=== PATIENT | male | born 1930 ===

== ENCOUNTER 2019-08-15 17:01 | Inpatient (IN) | payer MEDICARE, OTHER ==
[~2019-08-15] VITALS: Ht 172.7 cm; Wt 93.0 kg
[2019-08-15 17:06] VITALS: BP 110/43
[2019-08-15 18:09] LABS: BASO # 0.1 10*3/uL (0.0-0.1); BASO % 0.6 % (0.0-1.0); EOS # 0.1 10*3/uL (0.0-0.4); EOS % 0.8 % (1.0-4.0); HEMATOCRIT 35.1 % (42.0-52.0); HEMOGLOBIN 11.8 g/dl (14.0-18.0); LYMPH # 1.7 10*3/uL (1.3-4.4); LYMPH % 20.6 % (27.0-41.0); MEAN CELL VOLUME 94.4 fl (80.0-94.0); MEAN CORPUSCULAR HGB 31.7 pg (27.0-31.0); MEAN CORPUSCULAR HGB CONC 33.6 g/dl (33.0-37.0); MEAN PLATELET VOLUME 9.2 fl (9.6-12.3); MONO % 12.3 % (3.0-9.0); NEUT # 5.4 10*3/uL (2.3-7.9); NEUT % 65.3 % (47.0-73.0); PLATELET COUNT AUTOMATED 186 10*3/uL (130-400); RED BLOOD COUNT 3.72 10*6/uL (4.50-5.90); RED CELL DISTRI WIDTH 13.8 % (0-14.5); WHITE BLOOD COUNT 8.3 10*3/uL (4.8-10.8)
[2019-08-15 18:21] LABS: INTERNATIONAL NORM RATIO 2.3 (2.0-3.5)
[2019-08-15 18:25] LABS: ALBUMIN 3.1 gm/dl (3.1-4.5); CREATININE 2.42 mg/dL (0.70-1.30); POTASSIUM 3.3 mmol/L (3.5-5.1); TOTAL PROTEIN 8.6 gm/dL (6.4-8.2)
[2019-08-15 18:28] LABS: TROPONIN I 0.047 ng/ml (<0.045)
[2019-08-15 19:10] VITALS: BP 110/64
[2019-08-15 21:30] VITALS: BP 118/62
[2019-08-15] MEDS ORDERED: ZYLOPRIM300 MG PO (22:41)
[2019-08-15] MEDS ORDERED: BUMETANIDE1 MG PO (22:42)
[2019-08-15] MEDS ORDERED: LIPITOR40 MG PO (22:42)
[2019-08-15] MEDS ORDERED: DIGOX125 MCG PO (22:48)
[2019-08-15] MEDS ORDERED: FEROSUL325 MG PO (22:49)
[2019-08-15] MEDS ORDERED: DIGOX250 MCG PO (22:49)
[2019-08-15] MEDS ORDERED: LEVOTHYROXINE75 MCG PO (22:50)
[2019-08-15] MEDS ORDERED: AMARYL4 MG PO (22:50)
[2019-08-15] MEDS ORDERED: Zaroxolyn,Diul2.5 MG PO (22:51)
[2019-08-15] MEDS ORDERED: LOPRESSOR50 M1 PO (22:51)
[2019-08-15] MEDS ORDERED: K-TAB10 MEQ PO (22:52)
[2019-08-15] MEDS ORDERED: NU-MAG71.5 MG PO (22:52)
[2019-08-15] MEDS ORDERED: FLOMAX0.4 MG PO (22:53)
[2019-08-15] MEDS ORDERED: VITAMIN D250 MCG PO (22:56)
[2019-08-15] MEDS ORDERED: WARFARIN SODIUM6 MG PO ×2 (22:58)
[2019-08-15] MEDS ORDERED: LANTUS SOL100 UNIT/1 SQ (23:52)
[2019-08-15] MEDS ORDERED: NEURONTIN100 MG PO (23:52)
[2019-08-15] MEDS ORDERED: NITROSTAT0.4 MG SL (23:52)
[2019-08-15] MEDS ORDERED: LEVOFLOXACIN500 MG PO (23:53)
[2019-08-15] MEDS ORDERED: Ipratropium Brom3 ML INH (23:54)
[2019-08-15] MEDS ORDERED: PROAIR HFA8.5 GM INH (23:57)
[2019-08-15] MEDS ORDERED: [UNRECOGNIZED DRUG - OTHER] T (23:58)
[2019-08-16 06:21] LABS: BASO # 0.1 10*3/uL (0.0-0.1); BASO % 0.5 % (0.0-1.0); EOS # 0.1 10*3/uL (0.0-0.4); EOS % 0.7 % (1.0-4.0); HEMATOCRIT 35.7 % (42.0-52.0); HEMOGLOBIN 12.1 g/dl (14.0-18.0); LYMPH # 1.8 10*3/uL (1.3-4.4); LYMPH % 17.3 % (27.0-41.0); MEAN CELL VOLUME 93.5 fl (80.0-94.0); MEAN CORPUSCULAR HGB 31.7 pg (27.0-31.0); MEAN CORPUSCULAR HGB CONC 33.9 g/dl (33.0-37.0); MEAN PLATELET VOLUME 9.3 fl (9.6-12.3); MONO # 1.1 10*3/uL (0.1-1.0); MONO % 10.6 % (3.0-9.0); NEUT # 7.1 10*3/uL (2.3-7.9); NEUT % 70.7 % (47.0-73.0); PLATELET COUNT AUTOMATED 185 10*3/uL (130-400); RED BLOOD COUNT 3.82 10*6/uL (4.50-5.90); RED CELL DISTRI WIDTH 13.8 % (0-14.5); WHITE BLOOD COUNT 10.1 10*3/uL (4.8-10.8)
[2019-08-16 06:53] LABS: CREATININE 2.11 mg/dL (0.70-1.30); PHOSPHOROUS 2.7 mg/dL (2.5-4.9); POTASSIUM 3.3 mmol/L (3.5-5.1); TOTAL PROTEIN 8.6 gm/dL (6.4-8.2)
[2019-08-16 08:00] VITALS: BP 136/62
[2019-08-16 11:50] LABS: BILIRUBIN NEGATIVE (NEGATIVE); BLOOD 3+ (NEGATIVE); CLARITY CLOUDY (CLEAR); COLOR YELLOW (YELLOW); GLUCOSE NEGATIVE (NEGATIVE); KETONE NEGATIVE (NEGATIVE); SPECIFIC GRAVITY 1.005 (1.005-1.030)
[2019-08-16 11:51] LABS: LEUKO ESTERASE 3+ (NEGATIVE); NITRITE NEGATIVE (NEGATIVE); UROBILINOGEN 0.2 E.U./dl (0.2-1.0)
[2019-08-16 12:00] VITALS: BP 135/54
[2019-08-16 12:00] LABS: BACTERIA 2+; WBC TNTC wbc/hpf (0-5)
[2019-08-16 16:00] VITALS: BP 113/66
[2019-08-16 20:20] VITALS: BP 110/52
[2019-08-17] VITALS: BP 145/64
[2019-08-17 06:04] LABS: CREATININE 1.91 mg/dL (0.70-1.30); PHOSPHOROUS 2.8 mg/dL (2.5-4.9); POTASSIUM 3.1 mmol/L (3.5-5.1)
[2019-08-17 06:12] LABS: BASO % 0.4 % (0.0-1.0); EOS % 0.4 % (1.0-4.0); HEMATOCRIT 31.1 % (42.0-52.0); HEMOGLOBIN 10.7 g/dl (14.0-18.0); LYMPH # 1.4 10*3/uL (1.3-4.4); LYMPH % 14.7 % (27.0-41.0); MEAN CELL VOLUME 93.4 fl (80.0-94.0); MEAN CORPUSCULAR HGB 32.1 pg (27.0-31.0); MEAN CORPUSCULAR HGB CONC 34.4 g/dl (33.0-37.0); MEAN PLATELET VOLUME 9.6 fl (9.6-12.3); MONO % 10.6 % (3.0-9.0); NEUT # 6.9 10*3/uL (2.3-7.9); NEUT % 73.5 % (47.0-73.0); PLATELET COUNT AUTOMATED 162 10*3/uL (130-400); RED BLOOD COUNT 3.33 10*6/uL (4.50-5.90); RED CELL DISTRI WIDTH 13.9 % (0-14.5); WHITE BLOOD COUNT 9.4 10*3/uL (4.8-10.8)
[2019-08-17 08:00] VITALS: BP 123/52
[2019-08-17 12:00] VITALS: BP 130/60
[2019-08-17 14:28] LABS: INTERNATIONAL NORM RATIO 1.9 (2.0-3.5)
[2019-08-17 14:29] LABS: CREATININE 1.88 mg/dL (0.70-1.30); POTASSIUM 3.7 mmol/L (3.5-5.1)
[2019-08-17 16:00] VITALS: BP 120/54
[2019-08-17 20:00] VITALS: BP 120/54
[2019-08-17 22:45] VITALS: BP 90/42
[2019-08-18] VITALS (8 sets, daily range): BP systolic 94–138; BP diastolic 50–66
[2019-08-18 05:35] LABS: POTASSIUM 3.1 mmol/L (3.5-5.1)
[2019-08-18 06:04] LABS: BASO % 0.5 % (0.0-1.0); EOS # 0.2 10*3/uL (0.0-0.4); EOS % 1.9 % (1.0-4.0); HEMATOCRIT 30.3 % (42.0-52.0); HEMOGLOBIN 10.4 g/dl (14.0-18.0); LYMPH # 1.4 10*3/uL (1.3-4.4); LYMPH % 16.7 % (27.0-41.0); MEAN CELL VOLUME 92.9 fl (80.0-94.0); MEAN CORPUSCULAR HGB 31.9 pg (27.0-31.0); MEAN CORPUSCULAR HGB CONC 34.3 g/dl (33.0-37.0); MEAN PLATELET VOLUME 9.7 fl (9.6-12.3); MONO # 0.8 10*3/uL (0.1-1.0); MONO % 10.1 % (3.0-9.0); NEUT # 5.7 10*3/uL (2.3-7.9); NEUT % 70.4 % (47.0-73.0); PLATELET COUNT AUTOMATED 156 10*3/uL (130-400); RED BLOOD COUNT 3.26 10*6/uL (4.50-5.90); RED CELL DISTRI WIDTH 14.1 % (0-14.5); WHITE BLOOD COUNT 8.1 10*3/uL (4.8-10.8)
[2019-08-19 06:07] LABS: BASO # 0.1 10*3/uL (0.0-0.1); BASO % 0.7 % (0.0-1.0); HEMATOCRIT 31.3 % (42.0-52.0); HEMOGLOBIN 10.4 g/dl (14.0-18.0); LYMPH # 1.5 10*3/uL (1.3-4.4); LYMPH % 17.5 % (27.0-41.0); MEAN CELL VOLUME 94.3 fl (80.0-94.0); MEAN CORPUSCULAR HGB 31.3 pg (27.0-31.0); MEAN CORPUSCULAR HGB CONC 33.2 g/dl (33.0-37.0); MEAN PLATELET VOLUME 9.8 fl (9.6-12.3); MONO % 11.7 % (3.0-9.0); NEUT # 5.8 10*3/uL (2.3-7.9); NEUT % 69.5 % (47.0-73.0); PLATELET COUNT AUTOMATED 165 10*3/uL (130-400); RED BLOOD COUNT 3.32 10*6/uL (4.50-5.90); RED CELL DISTRI WIDTH 14.2 % (0-14.5); WHITE BLOOD COUNT 8.4 10*3/uL (4.8-10.8)
[2019-08-19 06:17] LABS: CREATININE 1.77 mg/dL (0.70-1.30); POTASSIUM 3.2 mmol/L (3.5-5.1)
[2019-08-19 08:00] VITALS: BP 115/59
[2019-08-19 11:57] VITALS: BP 121/52
[2019-08-19 16:00] VITALS: BP 128/67
[2019-08-19 20:00] VITALS: BP 118/64
[2019-08-20] VITALS: BP 110/54
[2019-08-20 06:12] LABS: CREATININE 1.68 mg/dL (0.70-1.30); POTASSIUM 3.3 mmol/L (3.5-5.1)
[2019-08-20 06:15] LABS: INTERNATIONAL NORM RATIO 1.9 (2.0-3.5)
[2019-08-20 08:00] VITALS: BP 120/72
[2019-08-20 12:00] VITALS: BP 126/72
[2019-08-20 16:00] VITALS: BP 125/54
[2019-08-20 20:00] VITALS: BP 110/56
[2019-08-21] VITALS: BP 115/70
[2019-08-21 06:17] LABS: CREATININE 1.58 mg/dL (0.70-1.30); POTASSIUM 3.1 mmol/L (3.5-5.1)
[2019-08-21 08:00] VITALS: BP 110/60
[2019-08-21 12:00] VITALS: BP 115/56
[2019-08-21] MEDS ORDERED: KLOR-CON M2020 ME1 PO (14:27)
[2019-08-21] MEDS ORDERED: BUMETANIDE1 MG PO (14:27)
[2019-08-21] MEDS ORDERED: REMEDY CALAZIME4 GM T (14:27)
[2019-08-21] MEDS ORDERED: Humalog SQ (14:27)
[2019-08-21] MEDS ORDERED: CIPRO500 MG PO (14:54)
== END 2019-08-21 17:30 | disposition other institution (70) | DRG 871 ==
LOC: ED 17:01 → EDHOLD 20:30 → 5E 20:30
PROVIDERS: Family Medicine; Internal Medicine Nephrology; Physician Assistant; Student in an Organized Health Care Education/Training Program; ADMIT Internal Medicine
DX: A41.9 Sepsis, unspecified organism (principal); N17.0 Acute kidney failure with tubular necrosis; N39.0 Urinary tract infection, site not specified; E87.1 Hypo-osmolality and hyponatremia; E44.0 Moderate protein-calorie malnutrition; I13.0 Hypertensive heart and chronic kidney disease with heart failure and stage 1 through stage 4 chronic kidney disease, or unspecified chronic kidney disease; N13.30 Unspecified hydronephrosis; Z66 Do not resuscitate; Z51.5 Encounter for palliative care; R31.9 Hematuria, unspecified; E87.6 Hypokalemia; E11.65 Type 2 diabetes mellitus with hyperglycemia; R65.20 Severe sepsis without septic shock; E78.5 Hyperlipidemia, unspecified; M10.9 Gout, unspecified; I25.10 Atherosclerotic heart disease of native coronary artery without angina pectoris; G62.9 Polyneuropathy, unspecified; N18.3 Chronic kidney disease, stage 3 (moderate); E11.22 Type 2 diabetes mellitus with diabetic chronic kidney disease; E03.9 Hypothyroidism, unspecified; N40.0 Benign prostatic hyperplasia without lower urinary tract symptoms; J44.9 Chronic obstructive pulmonary disease, unspecified; I50.9 Heart failure, unspecified; M81.0 Age-related osteoporosis without current pathological fracture; I48.91 Unspecified atrial fibrillation; B96.89 Other specified bacterial agents as the cause of diseases classified elsewhere; E11.42 Type 2 diabetes mellitus with diabetic polyneuropathy; R33.9 Retention of urine, unspecified; Z88.0 Allergy status to penicillin; Z90.49 Acquired absence of other specified parts of digestive tract; Z82.49 Family history of ischemic heart disease and other diseases of the circulatory system; Z84.1 Family history of disorders of kidney and ureter; Z79.4 Long term (current) use of insulin; Z79.899 Other long term (current) drug therapy; Z79.01 Long term (current) use of anticoagulants; Z68.31 Body mass index [BMI] 31.0-31.9, adult

== ENCOUNTER 2019-11-24 12:08 | Inpatient (IN) | payer MEDICARE, OTHER ==
[2019-11-24] VITALS (9 sets, daily range): BP systolic 102–133; BP diastolic 64–84
[~2019-11-24] VITALS: Ht 172.7 cm; Wt 93.0 kg
[~2019-11-24 12:08] MED LIST: AMARYL4 MG PO; BUMETANIDE1 MG PO; CIPRO500 MG PO; DIGOX125 MCG PO; DIGOX250 MCG PO; FEROSUL325 MG PO; FLOMAX0.4 MG PO; Humalog SQ; Ipratropium Brom3 ML INH; K-TAB10 MEQ PO; KLOR-CON M2020 ME1 PO; LANTUS SOL100 UNIT/1 SQ; LEVOFLOXACIN500 MG PO; LEVOTHYROXINE75 MCG PO; LIPITOR40 MG PO; LOPRESSOR50 M1 PO; NEURONTIN100 MG PO; NITROSTAT0.4 MG SL; NU-MAG71.5 MG PO; PROAIR HFA8.5 GM INH; REMEDY CALAZIME4 GM T; VITAMIN D250 MCG PO; WARFARIN SODIUM6 MG PO; ZYLOPRIM300 MG PO; Zaroxolyn,Diul2.5 MG PO; [UNRECOGNIZED DRUG - OTHER] T
[2019-11-24 13:40] LABS: BILIRUBIN NEGATIVE (NEGATIVE); BLOOD 3+ (NEGATIVE); CLARITY CLOUDY (CLEAR); COLOR YELLOW (YELLOW); GLUCOSE NEGATIVE (NEGATIVE); KETONE NEGATIVE (NEGATIVE); LEUKO ESTERASE 3+ (NEGATIVE); NITRITE POSITIVE (NEGATIVE); UROBILINOGEN 0.2 E.U./dl (0.2-1.0)
--- NOTE | 2019-11-24 13:41 | NUR ---
PT PROVIDED A CLEAN BRIEF AND REPOSITIONED WITH A WARM BLANKET, A PILLOW AN A LUNCH TRAY PROVIDED AND NO ADDITIONAL COMPLAINTS VOICED,SAFETY PRECAUTIONS INTACT AND A CALL LIGHT WITHIN REACH.
[2019-11-24 13:44] LABS: BACTERIA 4+; RBC TNTC rbc/hpf (0-2); WBC TNTC wbc/hpf (0-5)
[2019-11-24 15:09] LABS: BASO % 0.4 % (0.0-1.0); HEMATOCRIT 29.1 % (42.0-52.0); LYMPH # 1.7 10*3/uL (1.3-4.4); LYMPH % 16.9 % (27.0-41.0); MEAN CELL VOLUME 101.4 fl (80.0-94.0); MEAN CORPUSCULAR HGB 31.7 pg (27.0-31.0); MEAN CORPUSCULAR HGB CONC 31.3 g/dl (33.0-37.0); MEAN PLATELET VOLUME 9.3 fl (9.6-12.3); MONO # 0.8 10*3/uL (0.1-1.0); MONO % 7.5 % (3.0-9.0); NEUT # 7.5 10*3/uL (2.3-7.9); NEUT % 74.8 % (47.0-73.0); PLATELET COUNT AUTOMATED 172 10*3/uL (130-400); RED BLOOD COUNT 2.87 10*6/uL (4.50-5.90); RED CELL DISTRI WIDTH 16.1 % (0-14.5)
--- NOTE | 2019-11-24 15:18 | NUR ---
PT MADE AWARE THAT SON LUZ MARIA HAD CALLED AND THAT HE(PT)WAS TO BE ADMITTED,PT WITH FLUIDS PROVIDED AND SAFETY PRECAUTIONS AND CALL LIGHT REMAIN INTACT,NO ACUTE DISTRESS NOTED.PT WITH PHOTOGRAPHS TAKEN AND BRIEF CHANGED @ THAT TIME.
[2019-11-24 15:21] LABS: ACT PARTIAL THROMBO TIME 49.3 SECONDS (20.0-32.1); INTERNATIONAL NORM RATIO 3.1 (2.0-3.5)
[2019-11-24 15:27] LABS: ALBUMIN 2.9 gm/dl (3.1-4.5); CREATININE 1.64 mg/dL (0.70-1.30); POTASSIUM 3.9 mmol/L (3.5-5.1); TOTAL PROTEIN 7.8 gm/dL (6.4-8.2)
[2019-11-24 15:28] LABS: TROPONIN I 0.017 ng/ml (<0.045)
--- NOTE | 2019-11-24 15:38 | NUR ---
CARDIZEM HAD LITTLE EFFECT DR PEÑA NOTIFIED
--- NOTE | 2019-11-24 16:15 | NUR ---
A 89, admitted to 5E, under the services of ISAURA Zabala DO with a diagnosis of LUMBAR COMPRESSION FX,AFIB WITH RVR. Chief complaint is BACK PAIN. Patient arrived via stretcher from ER. Monitor applied. Initial assessment completed. Vital signs taken and recorded. ISAURA ZAABLA DO notified of admission to the unit. Orders received. See assessment for past medical history, medications and allergies. Patient and/or family oriented to unit 5 [facility]AST visitation policy reviewed. Clothing/patient valuable form completed. MANAV VALENCIA
--- NOTE | 2019-11-24 16:56 | NUR ---
PATIENT RECEIVED MORPHIME FOR BACK PAIN 03/08
--- NOTE | 2019-11-24 17:56 | NUR ---
PATIENT REPORTS MODERATE RELIEF FROM MORPHINE GIVEN X 1 HOUR AGO.
[2019-11-24] MEDS ORDERED: AQUAPHOR WITH N50 GM T (18:26)
[2019-11-24] MEDS ORDERED: CHOLESTYRAMINE P4 GM PO (18:31)
[2019-11-24] MEDS ORDERED: NEURONTIN300 MG PO (18:32)
[2019-11-24] MEDS ORDERED: INSULIN LI100 UNIT/1 SQ (18:35)
[2019-11-24] MEDS ORDERED: MAPAP EXTRA ST500 MG PO (18:37)
[2019-11-24] MEDS ORDERED: COUMADIN1 M1 PO (18:42)
[2019-11-24] MEDS ORDERED: ZINC50 M3 PO (18:44)
[2019-11-24] MEDS ORDERED: ICY HOT BALM99.2 GM T (18:47)
[2019-11-24] MEDS ORDERED: CALMOSEPTINE OI71 GM T (18:48)
[2019-11-24] MEDS ORDERED: TRAMADOL HCL50 MG PO (18:49)
--- NOTE | 2019-11-24 18:55 | NUR ---
NOTFIED OF PATIENTS MED REC COMPLETE SPOKE TO DR. AVALOS. HE ALSO STATED HE HAD NOTIFIED DR. MORFIN OF CONSULT EARLIER.
--- NOTE | 2019-11-24 19:30 | NUR ---
RETURNED FROM CT SCAN. HR STILL IN 140-150'S CARDIZEM DRIP INCREASED TO 10MG/HR.
--- NOTE | 2019-11-24 19:34 | NUR ---
IV DIGOXIN GIVEN PER ORDER FOR HRF 140'S IV SLOW PUSH OVER 4 MINUTES. HEART RATE WENT TO 129 BUT WENT BACK TO 140'S
--- NOTE | 2019-11-24 19:53 | NUR ---
C/O PAIN IN BACK RATED "7-8" NORCO GIVEN PER ORDER FOR THIS. SEE MAR.
--- NOTE | 2019-11-24 20:23 | NUR ---
HR DECREASED INTO THE 130'S
--- NOTE | 2019-11-24 20:50 | NUR ---
CB HELPING A LITTLE FOR BACK PAIN PER PT.
--- NOTE | 2019-11-24 22:28 | NUR ---
LANTUS NOT GIVEN PATIENT REFUSED GLUCOSE WAS 131.
--- NOTE | 2019-11-24 22:34 | NUR ---
CALLED DR. JONES AND NOTIFIED HIM OF PATIENT HR MEDS AND WHEEZING ORDERS RECEIVED.
[2019-11-25] VITALS (17 sets, daily range): BP systolic 102–140; BP diastolic 50–86
--- NOTE | 2019-11-25 01:06 | NUR ---
HR STILL 130'S AT TIMES AND MOSTLY 120'S INCREASED CARDIZEM TO 15MG/HR.
--- NOTE | 2019-11-25 01:15 | NUR ---
HR SPIKED INTO THE 150'S AND BACK DOWN 110'S-120'S CARDIZEM DRIP REMAINS AT 15MG/HR
--- NOTE | 2019-11-25 01:32 | NUR ---
24 HR chart check completed.
--- NOTE | 2019-11-25 02:17 | NUR ---
RESTING EASY. WHEEZING DECREASED. HR STILL GOES FROM 100'S -130'S.
[2019-11-25 06:03] LABS: BASO # 0.1 10*3/uL (0.0-0.1); BASO % 0.6 % (0.0-1.0); EOS # 0.1 10*3/uL (0.0-0.4); HEMATOCRIT 27.6 % (42.0-52.0); LYMPH # 1.8 10*3/uL (1.3-4.4); LYMPH % 19.5 % (27.0-41.0); MEAN CELL VOLUME 99.6 fl (80.0-94.0); MEAN CORPUSCULAR HGB 32.1 pg (27.0-31.0); MEAN CORPUSCULAR HGB CONC 32.2 g/dl (33.0-37.0); MEAN PLATELET VOLUME 9.6 fl (9.6-12.3); MONO # 0.8 10*3/uL (0.1-1.0); MONO % 8.6 % (3.0-9.0); NEUT # 6.3 10*3/uL (2.3-7.9); NEUT % 69.9 % (47.0-73.0); PLATELET COUNT AUTOMATED 186 10*3/uL (130-400); RED BLOOD COUNT 2.77 10*6/uL (4.50-5.90); RED CELL DISTRI WIDTH 15.8 % (0-14.5)
--- NOTE | 2019-11-25 06:04 | NUR ---
BEDSIDE BLOOD SUGAR TAKEN 49 RESULT. REPEAT TEST.
--- NOTE | 2019-11-25 06:06 | NUR ---
REPEAT BEDSIDE GLUCOSE STILL 49. TO NOTIFY
--- NOTE | 2019-11-25 06:15 | NUR ---
PT. DRANK 120CC ORANGE JUICE AND D10 INFUSING PER ORDER.
[2019-11-25 06:30] LABS: CREATININE 1.41 mg/dL (0.70-1.30); POTASSIUM 3.7 mmol/L (3.5-5.1); TOTAL PROTEIN 7.5 gm/dL (6.4-8.2)
--- NOTE | 2019-11-25 06:30 | NUR ---
CALLED DR. JONES AND NOTIFIED HIM OF BLOOD SUGAR 49 EVEN AFTER REPEAT, JUICE GIVEN AND D10 INFUSING PER ORDER. PATIENT ALERT AND COHERENT FOLLOWING DIRECTIONS. ALSO NOTIFIED HR AND CARDIZEM INFUSING AT 15MG/HR AND HR STILL 102 LOWEST AND HIGHEST 144 BUT MOSTLY RUNNING 110'S TO 120'S. PATIENT SLEEPING AND NO C/O CHEST PAIN VOICED. ORDERS RECEIVED TO GREGORY YANEZ.
[2019-11-25 06:32] LABS: INTERNATIONAL NORM RATIO 2.9 (2.0-3.5)
[2019-11-25 06:36] LABS: THYROID STIM HORMONE (HS) 3.09 uIU/ml (0.358-4.75)
--- NOTE | 2019-11-25 10:05 | NUR ---
CARDIZEM HAS BEEN TITRATED PER POLICY DR PEARL UPDATED REMAINS IN AF VR 85-102
--- NOTE | 2019-11-25 14:19 | NUR ---
SPOKE WITH DR. MORFIN. HE STATED TO INCREASE HIS DAILY METOPROLOL TO 100 MG BID AND TO GIVE A ONE TIME DOSE OF METOPROLOL 50 MG RIGHT NOW. RECHECK HIS BLOOD PRESSURE AND IF IT DOES NOT IMPROVE TO NOTIFY HIM.
--- NOTE | 2019-11-25 16:18 | NUR ---
CALLED DR. MORFIN IN REGARDS TO PATIENT'S BLOOD PRESSURE OF 120/50 AND HR STAYING IN THE 120-130'S AFTER ONE TIME DOSE METOPROLOL WAS GIVEN AT 1430. AWAITING A CALL BACK.
--- NOTE | 2019-11-25 17:16 | NUR ---
REPAGED DR. MORFIN ABOUT PT'S HR STILL RUNNING IN THE 120-130'S. AWAITING CALL BACK.
--- NOTE | 2019-11-25 19:40 | NUR ---
PAGE SENT TO 'S ANSWERING SERVICE. AWAITING RETURN PHONE CALL.
--- NOTE | 2019-11-25 19:42 | NUR ---
RETURNED PHONE CALL. DISCUSSED EARLIER MEDICATIONS GIVEN AND CURRENT VITALS/HR. INSTRUCTED TO ORDER 500 CC BOLUS X 1 BAG NOW.
--- NOTE | 2019-11-25 20:30 | NUR ---
500 CC FLUID BOLUS COMPLETE AT THIS TIME. BAG #4 OF TANISHA REYES. RUNNING AT 15 ML/HR INTO LAC IV SITE. HR 110S-120S PER CM. WILL ADMINISTER PM MEDICATIONS.
--- NOTE | 2019-11-25 21:35 | NUR ---
CALLED REGARDING PT HAVING INCREASED WHEEZING. RR 22-26. DISCUSSED HR AND MEDICATION CHANGES. NEW ORDERS TO FOLLOW.
--- NOTE | 2019-11-25 22:44 | NUR ---
CRACKLES NOW NOTED IN POSTERIOR BASES. RN DID NOT NOTICE THESE UPON EARLIER ASSESSMENT. MADE AWARE OF THIS. ALSO AWARE OF 500 CC BOLUS GIVEN EARLIER PER 'S ORDERS. AWARE THAT PATIENT IS CURRENTLY ASLEEP AND RR 22-24. POX 96% AND ABOVE ON 2L NC. INSTRUCTED TO MONITOR PT THROUGHOUT NIGHT AND CALL IF BREATHING DOES NOT IMPROVE/GETS WORSE. ALSO AWARE ONE TIME BREATHING TX NOT GIVEN, RESPIRATORY STATES THAT EARLIER ADMINISTRATION MADE HIM MORE SHORT OF BREATH.
[2019-11-26] VITALS (12 sets, daily range): BP systolic 105–147; BP diastolic 59–90
--- NOTE | 2019-11-26 02:48 | NUR ---
NOTIFIED OF PATIENT BREATHING PROGRESSIVELY GETTING WORSE. PT HAS PB CRACKLES BL AND HARSH WHEEZES WITH MOIST NON PRODUCTIVE COUGH. RESPIRATORY AT BEDSIDE TO ADMINISTER BREATHING TX. QUESTIONED WHETHER LASIX SHOULD BE ORDERED, 500 CC BOLUS HAD BEEN GIVEN EARLIER. NEW ORDERS TO FOLLOW.
--- NOTE | 2019-11-26 04:48 | NUR ---
POX REMAINS 98% AND ABOVE ON 2L NC. PT CONTINUES TO HAVE HARSH EXPIRATORY WHEEZING T/O SORENSON AND UPPER AIRWAY. COARSE CRACKLES IMPROVING TO R POSTERIOR BASE, BUT L POSTERIOR BASE REMAINS UNCHANGED. RR 26 AT THIS TIME. BP 147/81. PO NORCO ADMINISTERED FOR PT C/O LOWER BACK PAIN RATED 5/10. PT REFUSING POSITION CHANGE AT THIS TIME. PT DOES ALLOW PILLOW TO BE SLIGHTLY WEDGED UNDER ONE SIDE, BUT STATES IT HURTS TOO MUCH TO MOVE. WILL CONTINUE TO MONITOR. BED ALARM INTACT. CALL LIGHT IN REACH.
[2019-11-26 06:22] LABS: ALBUMIN 2.6 gm/dl (3.1-4.5); CREATININE 1.41 mg/dL (0.70-1.30); POTASSIUM 4.2 mmol/L (3.5-5.1); TOTAL PROTEIN 7.4 gm/dL (6.4-8.2)
[2019-11-26 06:31] LABS: BASO # 0.1 10*3/uL (0.0-0.1); BASO % 0.5 % (0.0-1.0); LYMPH # 1.2 10*3/uL (1.3-4.4); LYMPH % 11.8 % (27.0-41.0); MEAN CELL VOLUME 98.9 fl (80.0-94.0); MEAN CORPUSCULAR HGB 31.8 pg (27.0-31.0); MEAN CORPUSCULAR HGB CONC 32.1 g/dl (33.0-37.0); MEAN PLATELET VOLUME 9.3 fl (9.6-12.3); MONO # 0.8 10*3/uL (0.1-1.0); MONO % 8.5 % (3.0-9.0); NEUT # 7.8 10*3/uL (2.3-7.9); NEUT % 78.9 % (47.0-73.0); PLATELET COUNT AUTOMATED 195 10*3/uL (130-400); RED BLOOD COUNT 2.83 10*6/uL (4.50-5.90); RED CELL DISTRI WIDTH 15.8 % (0-14.5); WHITE BLOOD COUNT 9.9 10*3/uL (4.8-10.8)
--- NOTE | 2019-11-26 06:36 | NUR ---
JERMAN GOEL Miguel [id number] Please refer to the physician's history and physical for past medical history, comorbid conditions, and allergies. Diagnosis: LUMBAR COMPRESSION FRACTURE ATRIAL FIBRILLATION Kofi Score: 12,HIGH RISK WOUND DESCRIPTIONS: Wound Number: 1 Location of the wound: left buttocks Type of wound: stage 2 Thickness: Partial Size: 1.1cm x 1.4cm x 0.1cm Tunneling: none Undermining: none Sinus Tract: none Presence of Exudate: Serosanguineous Amount: Light Color: Red Odor: None Periwound Skin Appearance: Normal Wound edges: approximated Pain (associated with wound): none at time of assessment How does patient state this happened? pt unsure how this happened Wound Number: 2 Location of the wound: right proximal buttocks Type of wound: stage 2 Thickness: Partial Size: 0.3cm x 0.5cm x 0.1cm Tunneling: none Undermining: none Sinus Tract: none Presence of Exudate: Serosanguineous Amount: Light Color: Red Odor: None Periwound Skin Appearance: Normal Wound edges: approximated Pain (associated with wound): none at time of assessment How does patient state this happened? pt unsure how this happened Wound Number: 3 Location of the wound: lower right buttocks Type of wound: stage 2 Thickness: Partial Size: 0.5cm x 0.2cm x 0.1cm Tunneling: none Undermining: none Sinus Tract: none Presence of Exudate: Serosanguineous Amount: Light Color: Red Odor: None Periwound Skin Appearance: Normal Wound edges: approximated Pain (associated with wound): none at time of assessment How does patient state this happened? pt unable to state how this happened Wound Number: 4 Location of the wound: plantar aspect of left foot Type of wound: unstageable Thickness: Full Size: 0.2cm x 0.6cm x <0.1cm Tunneling: none Undermining: none Sinus Tract: none Presence of Exudate: none Amount: None Color: Brown, yellow Odor: None Periwound Skin Appearance: Normal Wound edges: closed Pain (associated with wound): none at time of assessment How does patient state this happened? pt unsure how this happened Wound Number: 5 Location of the wound: distal aspect of right great toe Type of wound: unstageable Thickness: Full Size: 0.3cm x 0.3cm x <0.1cm Tunneling: none Undermining: none Sinus Tract: none Presence of Exudate: none Amount: None Color: Black Odor: None Periwound Skin Appearance: Normal Wound edges: closed Pain (associated with wound): none at time of assessment How does patient state this happened? pt unsure how this happened Surface the patient is resting on: Isoflex SKIN PREVENTION RECOMMENDATION: 1. Pressure redistribution support surface as appropriate 2. Elevate heels 3. Remove boots/TEDS every shift and reapply 4. Head of bed 30 degrees as tolerated 5. Assess nutrition and hydration 6. Manage moisture 7. Avoid the use of containment devices while in bed 8. Use absorptive products on surfaces limit layers of linens on bed 9. Turn and reposition every 1-2 hours in bed and every 1 hour in chair as tolerated 10. Weight shifts every 15 minutes while up in chair 11. Offloading with pillows or device to keep heels elevated off bed 12. Monitor skin at least every shift 13. Inspect under medical devices twice a day WOUND TREATMENT RECOMMENDATIONS: Unstageable guidelines: Apply sureprep to plantar aspect of left foot and left distal end of great toe and allow time to dry then cover with bandaid every 2 days and prn for soiling. D/C skin tear guidelines to buttocks Cleanse proximal right buttocks proximal, right buttocks distal and left buttocks with soap and water and apply calazime every shift and prn for soiling Wheelchair cushion when oob. Heel raiser pro boots to bilateral feet while in bed.
[2019-11-26 06:42] LABS: INTERNATIONAL NORM RATIO 2.9 (2.0-3.5)
--- NOTE | 2019-11-26 07:48 | NUR ---
PHYSICAL THERAPY Nursing screen received and chart reviewed. PT evaluation received. Will follow. Thank you. Amira Theodore,PT,DPt
--- NOTE | 2019-11-26 07:52 | NUR ---
NOTIFIED OF PT HAVING TROUBLE SWALLOWING THIN LIQUIDS THIS MORNING. AWARE OF CRACKLES IN L POST BASE AND HARSH EXPIRATORY WHEEZES.
--- NOTE | 2019-11-26 08:50 | NUR ---
OT NOTE Occupational therapy evaluation received and chart reviewed. Per discussion with carolyne, patient is on a cardizem drop with A-fib, noteable respiratory status changes, and has difficulty wswallowing. Due to patient's medical status and possibility for surgery, will defer OT evaluation until medically appropriate. Thank you. Lillie Ramsey, OTR/L
--- NOTE | 2019-11-26 09:00 | NUR ---
PHYSICAL THERAPY Eval received chart reviewed spoke with pt's nurse. Pt remains on cardizem drip with Afib also noteable changes in respiratory status and difficulty swallowing thin liquids for possible Speech evaluation. Due to medical status will defer therapy today also per nsg looking at possible surgery for LB/compression fx's. Will follow and evaluate as medically appropriate. Denise Bond PT
--- NOTE | 2019-11-26 09:06 | NUR ---
Dr. Criss VARGAS notified of wound care recommendations
--- NOTE | 2019-11-26 12:18 | NUR ---
PT CURRENTLY RESIDES AT [facility]. TALKED WITH PT ABOUT SKILLED STAY PRIOR TO RETURNING BACK TO [facility]. PT STATES HE WANTS TO GO BACK TO [facility] IF HE CAN. IF NOT HE SAID HE HAS BEEN TO [facility] BEFORE AND WOULD GO BACK THERE ONLY IF ABSOLUTLY NECESSARY. WILL CONTINUE TO FOLLOW.
--- NOTE | 2019-11-26 13:52 | NUR ---
ECHO AT BEDSIDE
--- NOTE | 2019-11-26 15:21 | NUR ---
HAVE ATTEMPTED TO CALL THE CONSULT TO DR. OLIVARES OFFICE SEVERAL TIMES, PRESSING OPTION IF HOSPITAL, FRONT OFFICE, AND OFFICE MANGER WITH NO ANSWER. SEVERAL TIMES ON HOLD GREATER THAN 5 MINUTES, LINE WOUND THEN DISCONNECT. WILL CONTINUE TO ATTEMPT TO CALL CONSULT.
--- NOTE | 2019-11-26 16:13 | NUR ---
DR. OLIVARES ANSWERING SERVICE NOTIFIED OF CONSULT.
--- NOTE | 2019-11-26 20:01 | NUR ---
PT AWAKE IN BED. DENIES ANY NEEDS. RESPIRATORY AT BEDSIDE TO APPLY BIPAP PER ORDER. WILL MONITOR.
--- NOTE | 2019-11-26 20:07 | NUR ---
PATIENT PLACED ON BIPAP AT 12/6 WITH 30% OXYGEN.ON INITIAL ASSESSMENT PATIENT PRESENTED WITH WITH LOUD WHEEZE ORIGINATING IN HIS EPIGLOTTIS AREA. BASILAR CRACKLES NOTED FOR INSPIRAATION AND EXPIRATION. PATIENT IS RESTING COMFORTABLY ON BIPAP. CONTINUING TO MONITOR. RN AND DOCTOR AWARE.
--- NOTE | 2019-11-26 22:12 | NUR ---
BIPAP REMOVED AND PT PLACED ON O2 VIA 2L NC. RESPIRATORY NOTIFIED. PT MEDICATED WITH PO NORCO PER PRN ORDER FOR C/O PAIN IN BACK RATED 6/10. PATIENT TOOK PILLS ONE AT A TIME IN UPRIGHT POSITION WITHOUT ISSUE. PT INCONTINENT IN BED. PT CLEANED UP AND NEW BRIEF/CHUCKS/LINENS PROVIDED. PT AGREED TO REPOSITIONING AT THIS TIME. PT TURNED ON L SIDE USING PILLOW. HOB ELEVATED FOR COMFORT. AQUAPHOR OINTMENT APPLIED TO BLE PER ORDER. HEEL PROTECTORS IN PLACE. PT STATES HE FEELS MUCH BETTER AFTER WEARING BIPAP MASK. HARSH UPPER AIRWAY WHEEZES STILL PRESENT AND CRACKLES HEARD IN POSTERIOR BASES, BUT RESPIRATORY EFFORT IS MUCH IMPROVING. CONTINUOUS POX REMAINS IN PLACE. CARDIZEM GTT TITRATED TO 10 ML/HR. SCHEDULED PO METOPROLOL ADMINISTERED PER ORDER. PT'S HR SITTING 80S-90S PER CM. BP 130/72. WILL CONTINUE TO MONITOR. BED LEFT LOCKED IN LOW POSITION, BED ALARM INTACT, CALL LIGHT IN REACH.
--- NOTE | 2019-11-26 22:51 | NUR ---
EARLIER NORCO EFFECTIVE PER PT. WILL MONITOR. CALL LIGHT IN REACH. BED ALARM INTACT.
--- NOTE | 2019-11-26 22:51 | NUR ---
HR BACK UP INTO 110S AFTER CARDIZEM DECREASED TO 10 ML/HR. DRIP INCREASED BACK TO 15 ML/HR. WILL MONITOR.
[2019-11-27] VITALS (12 sets, daily range): BP systolic 104–133; BP diastolic 45–81
--- NOTE | 2019-11-27 04:30 | NUR ---
PT TAKEN OFF BIPAP AT THIS TIME. O2 APPLIED AT 2L NC.
--- NOTE | 2019-11-27 04:34 | NUR ---
Upon discharge recommend patient to follow up for wound care in outpatient setting continue current wound care orders at discharging facility.
--- NOTE | 2019-11-27 04:45 | NUR ---
PT REQUESTED AND RECEIVED PO NORCO PER PRN ORDER FOR C/O PAIN IN LOWER BACK RATED 6/10. WILL MONITOR EFFECTIVENESS. CALL LIGHT IN REACH. BED ALARM INTACT.
--- NOTE | 2019-11-27 05:40 | NUR ---
EARLIER MEDICATION EFFECTIVE PER PT. WILL MONITOR. CALL LIGHT IN REACH.
--- NOTE | 2019-11-27 06:51 | NUR ---
SQ INSULIN GIVEN PER ORDER. PT ASSISTED TO ORDER BREAKFAST. NO NEEDS VOICED AT THIS TIME. WILL MONITOR. CALL LIGHT IN REACH.
[2019-11-27 06:58] LABS: INTERNATIONAL NORM RATIO 2.8 (2.0-3.5)
--- NOTE | 2019-11-27 07:29 | NUR ---
ISSUING OPERATOR FAXED UPDATES TO [facility].
--- NOTE | 2019-11-27 08:36 | NUR ---
CITY CONTROLLER REACHED BACK OUT TO [facility]. CITY CONTROLLER SPOKE WITH MAE WHO STATED THE PATIENTS DO NOT NEED A COVID RESULT TO RETURN. CITY CONTROLLER WILL NOTIFY RN HOSPITALIST COORDINATOR CLARITA WHEN SHE IS AVAILABLE.
--- NOTE | 2019-11-27 08:38 | NUR ---
SPEECH PATHOLOGY Clinical swallowing evaluation completed as per orders. Patient has been experiencing difficulty swallowing liquids. Medical history includes lumbar compression fx, A-fib with RVR, CHF, COPD, CAD, DM, neuropathy, prostate CA. CXR revealed mild pulmonary edema in right upper lobe. Patient is ordered a regular diet and thin liquid. He was alert and cooperative for assessment and denied any dysphagia. Oral peripheral exam revealed edentulous status. Lingual/labial skills were WNL in terms of strength, ROM and coordination. He had already completed his breakfast and had consumed 100%. He was assessed with thin liquid (water) and solid food (pretzel.) He took water by cup in single and consecutive sips and displayed no overt difficulty. He admitted to having difficulty chewing the pretzel. He stated that he has been ordering softer foods as he does not have his dentures with him. Patient displays no s/s aspiration and it is recommended he remain on present diet and continue to order softer items that are easier to chew. No follow up treatment is warranted at this time. Results and sheila. were shared with patient and nurse and they verbalized understanding. Refer to report in [facility] for further information. Thank you for this referral. JOCE ALEXANDRA MSCCC-BLANKMAKER
--- NOTE | 2019-11-27 08:45 | NUR ---
OT NOTE Occupational therapy order received and chart reviewed. Per discussion with nurse, patient's HR remains elevated and is still on the increased cardizem drip. Will defer therapy until HR stable and appropriate for an OT eval. Thank you. Lillie Ramsey OTR/L
--- NOTE | 2019-11-27 09:12 | NUR ---
PHYSICAL THERAPY Spoke with pt's nurse and pt's HR continues to be elevated with need to increase cardizem drip rate, will defer therapy at this time until HR stable and pt medically appropriate. Denise Bond PT
--- NOTE | 2019-11-27 12:19 | NUR ---
[place] PILOT IN TO TALK WITH PT. PT IS AGREEABLE TO GO TO [facility] PRIOR TO RETURNING TO [facility]. STATES I AM NOT LEAVING HERE UNTIL I GET THIS PAIN TAKEN CARE OF. I HAVE A FRACTURED BACK AND THEY ARE GOING TO DO SURGERY ON ME. ATTEMPTED TO EXPLAIN TO PT THAT WHILE HE HAD UTI PROCEDURE CAN NOT BE DONE. WILL CONTINUE TO FOLLOW.
--- NOTE | 2019-11-27 14:34 | NUR ---
[facility] IS PENDING INSURANCE VERIFICATION.
--- NOTE | 2019-11-27 15:34 | NUR ---
PHYSICAL THERAPY Spoke with nsg pt still on cardizem drip, contacted FOURTH MATE Criss regarding HR, IV medication and activity level. Will discuss/address in the AM with cardiology and clarify activity. Denise Bond PT
--- NOTE | 2019-11-27 15:44 | NUR ---
OT NOTE Spoke with nursing in regards to patient being on the cardizem drip this PM. The physical therapist contacted Criss MONITORING TECH in regards to patient's HR, medications, and activity level. Will discuss further with cardiology and MONITORING TECH in the AM for activity clarifications for an OT evaluation. Thank you. Lillie Ramsey, OTR/L
--- NOTE | 2019-11-27 17:19 | NUR ---
CARDIZEN TITRATED TO 10MG/HR HR 90-103 WILL CONTINUE TO MONITOR FOR NEED TO TITRATE
--- NOTE | 2019-11-27 18:17 | NUR ---
HR 120'S CARDIZEN TITRATED TO 15MG/HR
[2019-11-28] VITALS (12 sets, daily range): BP systolic 104–132; BP diastolic 52–81
--- NOTE | 2019-11-28 01:29 | NUR ---
PT REQUESTED AND RECEIVED PO NORCO PER PRN ORDER FOR C/O PAIN IN BACK RATED 5/10. WILL MONITOR EFFECTIVENESS. CALL LIGHT IN REACH.
--- NOTE | 2019-11-28 01:35 | NUR ---
PT OFF BIPAP AT THIS TIME. BACK ON NASAL CAN
--- NOTE | 2019-11-28 02:25 | NUR ---
EARLIER MEDICATION APPEARS EFFECTIVE. PT ASLEEP IN BED. NO S/S OF DISTRESS NOTED. WILL MONITOR. CALL LIGHT IN REACH.
[2019-11-28 07:26] LABS: INTERNATIONAL NORM RATIO 2.5 (2.0-3.5)
[2019-11-28 07:54] LABS: HEMATOCRIT 28.2 % (42.0-52.0); MEAN CELL VOLUME 98.6 fl (80.0-94.0); MEAN CORPUSCULAR HGB 31.8 pg (27.0-31.0); MEAN CORPUSCULAR HGB CONC 32.3 g/dl (33.0-37.0); MEAN PLATELET VOLUME 9.7 fl (9.6-12.3); NUCLEATED RED BLOOD CELL 0.1 % (0.0-0.0); PLATELET COUNT AUTOMATED 224 10*3/uL (130-400); RED BLOOD COUNT 2.86 10*6/uL (4.50-5.90); RED CELL DISTRI WIDTH 15.1 % (0-14.5)
[2019-11-28 08:08] LABS: ALBUMIN 2.9 gm/dl (3.1-4.5); CREATININE 1.9 mg/dL (0.70-1.30); POTASSIUM 4.6 mmol/L (3.5-5.1); TOTAL PROTEIN 7.7 gm/dL (6.4-8.2)
[2019-11-28 08:16] LABS: BURR CELLS FEW; PLATELET SUFFICIENCY NORMAL (NORMAL); POLYCHROMASIA SLIGHT; TOTAL CELLS COUNTED 100 #CELLS
[2019-11-28 08:17] LABS: OVALOCYTES FEW
--- NOTE | 2019-11-28 09:25 | NUR ---
Occupational Therapy evaluation completed on five with full evaluation to follow. Recommend occupational therapy per plan of care and sNF upon discharge. Thank you for this referral. Lillie Ramsey OTR/L
--- NOTE | 2019-11-28 09:30 | NUR ---
Physical Therapy evaluation completed on 5th floor with full evaluation to follow. Recommend physical therapy per plan of care and SNF upon discharge. Thank you for this referral. Denise Bond PT
--- NOTE | 2019-11-28 10:20 | NUR ---
16 FR FIELD INSERTED PER ORDER, USING STERILE TECHNIQUE, IMMEDIATE RETURN OF 100CC OF PALE , CLOUDY, URINE WITH SEDEMENT. CATHETERE SECURED TO LEG, PT TOLERATED WELL, WILL CONTINUE TO MONITOR
--- NOTE | 2019-11-28 10:26 | NUR ---
NOTIFIED OF CONSULT
--- NOTE | 2019-11-28 11:27 | NUR ---
PT REMAINS ON CARDIZEM DRIP. WILL HAVE POSSIBLE VERTIBRAPLASTY WHEN MEDICALLY STABLE. HAS AGREED TO SNF PLACEMENT AND HAS BEEN REFERRED TO [facility]. WILL CONTINUE TO FOLLOW.
--- NOTE | 2019-11-28 12:00 | NUR ---
CARDIZEM GTT DECREASED OT 5MG/HR PT HR 90-110 CARDIOLOGY IS OK WITH THIS RATE
--- NOTE | 2019-11-28 14:00 | NUR ---
PHYSICAL THERAPY Pt seen in the PM to attempt futher activity, however presently pt declining as "very tired" and wanting to rest. Pt now on RA sats 96% and with parsons catheter. Pt was agreeable for bed mobility to assist nursing with dressing changes to bilateral buttock region. Rolling R/L with Mod assist x 2 Log roll tech. Repositioned for comfort offload boots on BLE call colbert in reach with bed alarm engaged. Tolerated activity well though increase fatigue with activity and moderate LBP. Will cont per POC Denise Bond PT
--- NOTE | 2019-11-28 14:05 | NUR ---
OT NOTE Attempted to see patient this afternoon for further activity; however, patient is currently declining OT treatment stating he is "too tired". Patient now on RA at 96% SpO2. Nursing into room to complete dressing to buttock region, OTR assisted with log rolling in bed with Mod Ax2. Patient assisted with repositioning in bed to conclude. Patient supine with HOB elevated, all needs within reach, B/L alvina boots donned, and alarm on for safety. Will attempt in AM for continued OT treatment. Thank you. Lillie Ramsey, OTR/L
--- NOTE | 2019-11-28 17:03 | NUR ---
PT SLEEPING, HEART SUSTAINING 120-130 CARDIZEN INCREASED TO 10MG/HR PER TITRATION ORDER
--- NOTE | 2019-11-28 18:33 | NUR ---
HR BETWEEN 90-106 AFIB, PT RESTING IN BED WITH EYES CLOSED
--- NOTE | 2019-11-28 19:41 | NUR ---
24 HR CHART CHECK COMPLETE.
--- NOTE | 2019-11-28 20:30 | NUR ---
PT IS SITTING UP IN BED RESTING AT THIS TIME. RESPS ARE EASY AND NONLABORED. PT STATES HE IS FEELING WELL. CARDIZEM GTT INFUSING PER ORDER. BP WNL, HR LOW 100'S. BED LOW, CALL LIGHT WITHIN REACH. WILL CONTINUE TO MONITOR.
--- NOTE | 2019-11-28 23:28 | NUR ---
PT PLACED ON BIPAP/NIV AT THIS TIME
[2019-11-29] VITALS (13 sets, daily range): BP systolic 101–124; BP diastolic 49–78
--- NOTE | 2019-11-29 01:57 | NUR ---
PT OFF BIPAP
[2019-11-29 06:15] LABS: BASO % 0.1 % (0.0-1.0); HEMATOCRIT 28.2 % (42.0-52.0); LYMPH # 1.1 10*3/uL (1.3-4.4); LYMPH % 7.3 % (27.0-41.0); MEAN CELL VOLUME 98.9 fl (80.0-94.0); MEAN CORPUSCULAR HGB 31.9 pg (27.0-31.0); MEAN CORPUSCULAR HGB CONC 32.3 g/dl (33.0-37.0); MEAN PLATELET VOLUME 8.9 fl (9.6-12.3); MONO % 6.6 % (3.0-9.0); NEUT # 12.8 10*3/uL (2.3-7.9); NEUT % 84.5 % (47.0-73.0); PLATELET COUNT AUTOMATED 225 10*3/uL (130-400); RED BLOOD COUNT 2.85 10*6/uL (4.50-5.90); RED CELL DISTRI WIDTH 15.1 % (0-14.5); WHITE BLOOD COUNT 15.1 10*3/uL (4.8-10.8)
[2019-11-29 06:21] LABS: INTERNATIONAL NORM RATIO 2.2 (2.0-3.5)
[2019-11-29 06:32] LABS: ALBUMIN 2.9 gm/dl (3.1-4.5); CREATININE 1.83 mg/dL (0.70-1.30); POTASSIUM 4.6 mmol/L (3.5-5.1); TOTAL PROTEIN 7.6 gm/dL (6.4-8.2)
--- NOTE | 2019-11-29 07:43 | NUR ---
DISTRIBUTOR OPERATOR FAXED UPDATES TO [facility].
--- NOTE | 2019-11-29 07:57 | NUR ---
DIRECTOR OF OCCUPATIONAL HEALTH COMPLETED HENS.
--- NOTE | 2019-11-29 10:30 | NUR ---
ON FLOOR AND AWARE THAT PATIENT'S HR STILL 90'S-100'S A FIB & STILL ON CARDIZEM @ 10/HR.
--- NOTE | 2019-11-29 10:40 | NUR ---
PHYSICAL THERAPY Patient seen this am 1;1 for therapy visit and was resting supine in bed with B UE IV treatments running upon therapist arrival. Patient identified by name / and reported feeling a bit "sluggish" this morning. Patient needed MAX encouragement for active particiipation and reviewed spinal precautions prior to transfering supine to sit EOB with MOD A x 2. Patient tolerated static EOB sit with emphasis on good upright seated posture to improve breathing. Patient also presented with continuos O2-2L via NC and recorded resting HR 86 bpm. Patient performed sit to stand transfer, use of wh walker standing support, MIN A x 2, recording HR 95 bpm and completed SPT to bedside chair, demonstrating increased difficulty with safe walker navigation / step sequence. Patient remained in bedside chair with call light, tray table, telephone and body alarm for safety. HR mid 80's range following treatment and will continue per POC as tolerated, total treatment time 14 minutes. Ming Lemons, REPRODUCTIVE ENDOCRINOLOGIST
--- NOTE | 2019-11-29 11:00 | NUR ---
OT NOTE Pt seen this date 1:1 for 30 min therapy session. Checked w nursing prior to treatment for approval to treat. Pt identified by name and . Upon arrival pt supine in bed presenting w continuous 2LO2 via NC which remained intact throughout entire session. At rest supine in bed pts heart rate read 86 bpm. Pt had no c/o pain but stated he was experiencing "wheezing" and chest congestion. Pt required encouragement and education on benefits of therapy to increase I and was then agreeable to treatment. Pt was able to verbalize 2 out of 3 spinal precautions and reeducated on no bending, lifting or twisting which were maintained throughout entire session. Pt completed bed mobility from supine in bed to seated at EOB w Mod A x2 where his heart rate read 95 bpm. Pt remained seated at EOB for 7 min and was educated on importance of proper posture and breathing techniques. Pt's socks were donned with maxA to maintain spinal precautions. Pt stood from bed level w ww and Min A x2. Pt stood for 5 min where his heart rate read 90-100 bpm requiring one verbal cue for good posture. Pt completed pivot w ww and CGA to bedside chair requiring cues for ww safety w good followthrough. Pt transferred to seated in bedside chair w ww and CGA requiring one verbal/tactile cue for proper hand placement w good followthrough. At end of session pt reclined in bedside chair w 2LO2 via NC intact, call light in reach, bedside table in place w heart rate reading 85 bpm, and body alarm activated for safety. Continue w recommended D/C to SNF. [facility]/OCTAVIO Lopez
--- NOTE | 2019-11-29 17:45 | NUR ---
PT SITTING UP IN CHAIR EATING DINNER. DENIES ANY COMPLAINTS AT THIS TIME.
--- NOTE | 2019-11-29 21:53 | NUR ---
INFORMED THAT FINGERSTICK BGM X2 OF 439 & 418. INFORMED 22 UNITS PER SSI WAS GIVEN AND CHARLEY 15 UNITS OF LANTUS. STATED NO NEW ORDERS AT THIS TIME.
--- NOTE | 2019-11-29 23:13 | NUR ---
PATIENT REFUSING TO WEAR BIPAP
[2019-11-30] VITALS (9 sets, daily range): BP systolic 106–128; BP diastolic 50–76
[2019-11-30 06:32] LABS: ALBUMIN 2.9 gm/dl (3.1-4.5); CREATININE 1.75 mg/dL (0.70-1.30); POTASSIUM 4.5 mmol/L (3.5-5.1); TOTAL PROTEIN 7.4 gm/dL (6.4-8.2)
[2019-11-30 06:36] LABS: BASO % 0.1 % (0.0-1.0); LYMPH # 0.8 10*3/uL (1.3-4.4); LYMPH % 6.4 % (27.0-41.0); MEAN CELL VOLUME 98.2 fl (80.0-94.0); MEAN CORPUSCULAR HGB 31.9 pg (27.0-31.0); MEAN CORPUSCULAR HGB CONC 32.5 g/dl (33.0-37.0); MEAN PLATELET VOLUME 9.3 fl (9.6-12.3); MONO # 0.4 10*3/uL (0.1-1.0); MONO % 2.7 % (3.0-9.0); NEUT # 11.3 10*3/uL (2.3-7.9); NEUT % 88.5 % (47.0-73.0); PLATELET COUNT AUTOMATED 225 10*3/uL (130-400); RED BLOOD COUNT 2.85 10*6/uL (4.50-5.90); RED CELL DISTRI WIDTH 14.9 % (0-14.5); WHITE BLOOD COUNT 12.8 10*3/uL (4.8-10.8)
--- NOTE | 2019-11-30 07:03 | NUR ---
PT NOT ON BIPAP AT THIS TIEME
--- NOTE | 2019-11-30 07:43 | NUR ---
TOOK OVER CARE OF PT AT THIS TIME. PT RESTING IN BED. RESPIRATIONS EASY AND UNLABORED ON NC. IV CARDIZEM DRIP INFUSING PER ORDERS. FIELD IN TACT, DRAINING STRAW COLORED URINE. NO S/S OF DISTRESS. SAFETY MEASURES IN PLACE. CALL LIGHT IN REACH.
--- NOTE | 2019-11-30 09:50 | NUR ---
OT NOTE Attempted to see pt this A.M. for therapy session. Upon arrival pt supine in bed w bed alarm activated. Pt not agreeable to therapy stating he was feeling "depressed" and "did not feel like doing anything today". Pt educated on the benefits of therapy to increase pts safety and I. Pt continued to deny services. Will attempt again at later time/date. Continue w POC as able. [facility]/CLAU Lopez/Colin
--- NOTE | 2019-11-30 13:05 | NUR ---
OT NOTE Attempted to see pt this P.M. Upon arrival pt identified by name and . Pt denied threapy stating "I'm not getting up today don't bother coming back". Pt educated on benefits of therapy and continued to refuse. Will check again at later time/date. Continue w POC as able. [facility]/CLAU Lopez/Colin
--- NOTE | 2019-11-30 13:05 | NUR ---
PHYSICAL THERAPY Patient was appproached several times this date for therapy visit and reported he was feeling tired this am, requesting to be seen later, then declined treatment this pm, however did not give a reason. Patient just stated " I don't won't to do anything today, you can leave now". Patient remained supine in bed and will continue per POC as able. Nurse advised of patient request. Ming Lemons, TELEPHONE TRIAGE NURSE
--- NOTE | 2019-11-30 13:58 | NUR ---
PHYSICAL THERAPY NOTIFIES THIS NURSE THAT PT STATES THAT HE IS DEPRESSED. DR HALL NOTIFEID OF THIS.
--- NOTE | 2019-11-30 14:01 | NUR ---
OCCUPATIONAL THERAPY CO-SIGN I approve of the Occupational Therapy notes written above. LATRICIA IRWIN, OTR/L
--- NOTE | 2019-11-30 15:15 | NUR ---
PT NOT ON BIPAP AT THIS TIME
--- NOTE | 2019-11-30 16:07 | NUR ---
DR WHITTAKER NOTIFIED THAT PT BEDSIDE GLUCOSE IS 45O AND REPEAT IS 444. ORDERS RECEIVED TO GIVE PATIENT S/S DOSAGE OF 22 UNITS FOR THIS GLUCOSE LEVEL.
--- NOTE | 2019-11-30 19:30 | NUR ---
PATIENT VOICED NO COMPLAINTS. NO DISTRESS NOTED, RESP ARE EASY AND REGULAR. CALL LIGHT WITHIN REACH
--- NOTE | 2019-11-30 21:52 | NUR ---
INFORMED THAT PATIENT'S FINGER STICK BGM X2 OF 469 THEN 437. INFORMED THAT SSI AND LANTUS GIVEN. STATED NO NEW ORDERS.
[2019-12-01] VITALS: BP 128/68
--- NOTE | 2019-12-01 07:56 | NUR ---
PT NOT ON BIPAP AT THIS TIME
[2019-12-01 08:00] VITALS: BP 120/62
--- NOTE | 2019-12-01 08:20 | NUR ---
PT RESTING IN BED./ NO DISTRESS NOTED. WILL MONITOR
[2019-12-01 09:43] LABS: HEMATOCRIT 28.5 % (42.0-52.0); MEAN CELL VOLUME 96.3 fl (80.0-94.0); MEAN CORPUSCULAR HGB 32.4 pg (27.0-31.0); MEAN CORPUSCULAR HGB CONC 33.7 g/dl (33.0-37.0); PLATELET COUNT AUTOMATED 213 10*3/uL (130-400); RED BLOOD COUNT 2.96 10*6/uL (4.50-5.90); RED CELL DISTRI WIDTH 14.7 % (0-14.5); WHITE BLOOD COUNT 13.2 10*3/uL (4.8-10.8)
[2019-12-01 09:52] LABS: INTERNATIONAL NORM RATIO 1.9 (2.0-3.5)
[2019-12-01 10:01] LABS: CREATININE 1.63 mg/dL (0.70-1.30); POTASSIUM 4.2 mmol/L (3.5-5.1); TOTAL PROTEIN 7.6 gm/dL (6.4-8.2)
[2019-12-01 10:13] LABS: OVALOCYTES FEW; PLATELET SUFFICIENCY NORMAL (NORMAL); POLYCHROMASIA SLIGHT; TOTAL CELLS COUNTED 100 #CELLS; VACUOLATION OF NEUTROPHILS SLIGHT
--- NOTE | 2019-12-01 11:11 | NUR ---
PT NOT ON BIPAP AT THIS TIME
[2019-12-01 12:00] VITALS: BP 111/72
--- NOTE | 2019-12-01 15:14 | NUR ---
PT NOT ON BIPAP BIPAP AT THIS TIME
[2019-12-01 16:00] VITALS: BP 110/59
--- NOTE | 2019-12-01 17:07 | NUR ---
Pt assessed at 1100. Pt A & O x3, sitting in chair with feet elevated. Pt said "When I hurt my back it was a 10 on a scale of 0 to 10, but now it's a 0". Patient has +4 edema bilaterally on lower extremities and hands. Expiratory and inspiratory wheezing with a nonproductive cough. Abdomen soft and nondistended, parsons patent and intact draining pale, yellow urine with sediment. keeping feet elevated to help edema but monitor closely to make sure its not affecting further fluid overload. Monitor effectiveness of medication and manage fluid imbalance with I's and O's and daily weights.
[2019-12-01 20:00] VITALS: BP 118/79
--- NOTE | 2019-12-01 21:47 | NUR ---
AWARE OF FINGERSTICK BGM X2 OF 449/456. STATED NO NEW ORDERS.
--- NOTE | 2019-12-01 23:01 | NUR ---
PLACED PATIENT ON BIPAP FOR HS
[2019-12-02] VITALS: BP 118/76
--- NOTE | 2019-12-02 01:30 | NUR ---
PATIENT REMOVED FROM BIPAP PER REQUEST.
--- NOTE | 2019-12-02 07:48 | NUR ---
TOOK OVER CARE OF PT AT THIS TIME. PT RESTING IN BED, SLEEPING. RESPIRATIONS EASY AND UNLABORED ON 2L NC. NO S/S OF DISTRESS. SAFETY MEASURES IN PLACE. CALL LIGHT IN REACH.
[2019-12-02 12:00] VITALS: BP 121/62
--- NOTE | 2019-12-02 12:00 | NUR ---
PT SITTING UP IN BED, EATING LUNCH.NO S/S OF DISTRESS NOTED. NO COMPLAINTS ARE VOICED BY PT. RESPIRATIONS UNLABORED ON 2L NC. SAFETY MEASURES IN PLACE. CALL LIGHT IN REACH.
[2019-12-02 16:00] VITALS: BP 102/52
--- NOTE | 2019-12-02 18:13 | NUR ---
PT UP IN CHAIR AT THIS TIME. RESPIRATIONS EASY ON 2L NC. PT DENIES PAIN AND SHORTNESS OF BREATH. FIELD CATHETER PATENT AND DRAINING STRAW COLORED URINE. BODY ALARM IN PLACE. CALL LIGHT IN REACH.
[2019-12-02 20:00] VITALS: BP 114/54
--- NOTE | 2019-12-02 20:20 | NUR ---
INFORMED THAT HR INF MAINTAINING 110-120'S AFIB. PATIENT IS JUST RESTING IN HIS CHAIR. STATED TO GIVE CHARLEY TOPROL NOW AND MONITOR
--- NOTE | 2019-12-02 20:41 | NUR ---
INFORMED OF FINGERSTICK BGM X2 OF 433/465. STATED NO NEW ORDERS.
--- NOTE | 2019-12-02 21:55 | NUR ---
HR IS 80-LOW 100'S AT THIS TIME.
--- NOTE | 2019-12-02 23:06 | NUR ---
PLACED PATIENT ON BIPAP
[2019-12-03] VITALS: BP 134/60
--- NOTE | 2019-12-03 02:15 | NUR ---
REMOVED FROM BIPAP PER PATIENT REQUEST
--- NOTE | 2019-12-03 06:06 | NUR ---
JERMAN GOEL Miguel [id number] Please refer to the physician's history and physical for past medical history, comorbid conditions, and allergies. Diagnosis: LUMBAR COMPRESSION FRACTURE ATRIAL FIBRILLATION Kofi Score: 12,HIGH RISK WOUND DESCRIPTIONS: Wound Number: 1 Location of the wound: left buttocks no open areas noted at time of assessment. No drainage noted at time of assessment. Wound Number: 2 Location of the wound: right proximal buttocks Type of wound: stage 2 Thickness: Partial Size: 0.4cm x 0.5cm x <0.1cm Tunneling: none Undermining: none Sinus Tract: none Presence of Exudate: none Amount: none Color: Red Odor: None Periwound Skin Appearance: Normal Wound edges: approximated Pain (associated with wound): none at time of assessment How does patient state this happened? pt unsure how this happened Wound Number: 3 Location of the wound: lower right buttocks Type of wound: stage 2 Thickness: Partial Size: 0.6cm x 0.2cm x <0.1cm Tunneling: none Undermining: none Sinus Tract: none Presence of Exudate: none Amount: none Color: Red Odor: None Periwound Skin Appearance: Normal Wound edges: approximated Pain (associated with wound): none at time of assessment How does patient state this happened? pt unable to state how this happened Wound Number: 4 Location of the wound: plantar aspect of left foot Type of wound: unstageable Thickness: Full Size: 0.2cm x 0.6cm x <0.1cm Tunneling: none Undermining: none Sinus Tract: none Presence of Exudate: none Amount: None Color: Brown, yellow Odor: None Periwound Skin Appearance: Normal Wound edges: closed Pain (associated with wound): none at time of assessment How does patient state this happened? pt unsure how this happened Wound Number: 5 Location of the wound: distal aspect of right great toe Type of wound: unstageable Thickness: Full Size: 0.3cm x 0.3cm x <0.1cm Tunneling: none Undermining: none Sinus Tract: none Presence of Exudate: none Amount: None Color: Black Odor: None Periwound Skin Appearance: Normal Wound edges: closed Pain (associated with wound): none at time of assessment How does patient state this happened? pt unsure how this happened New skin impairment Wound Number: 6 Location of the wound: right medial buttocks Type of wound: stage 1 Size: 2.0cm x 0.5cm x <0.1cm Tunneling: none Undermining: none Sinus Tract: none Presence of Exudate: none Amount: none Color: Red Odor: None Periwound Skin Appearance: Normal Wound edges: approximated Pain (associated with wound): none at time of assessment How does patient state this happened? pt unsure how this happened Surface the patient is resting on: Isoflex SKIN PREVENTION RECOMMENDATION: 1. Pressure redistribution support surface as appropriate 2. Elevate heels 3. Remove boots/TEDS every shift and reapply 4. Head of bed 30 degrees as tolerated 5. Assess nutrition and hydration 6. Manage moisture 7. Avoid the use of containment devices while in bed 8. Use absorptive products on surfaces limit layers of linens on bed 9. Turn and reposition every 1-2 hours in bed and every 1 hour in chair as tolerated 10. Weight shifts every 15 minutes while up in chair 11. Offloading with pillows or device to keep heels elevated off bed 12. Monitor skin at least every shift 13. Inspect under medical devices twice a day WOUND TREATMENT RECOMMENDATIONS: Continue wheelchair cushion when oob Continue heel raiser pro boots to bilateral feet Continue unstageable guidelines to plantar aspect of left foot and tip of left great toe Clarify dressing change. Cleanse right buttocks proximal, right buttocks medial, right buttocks distal with soap and water pat area dry then apply calazime every shift and prn for soiling.
--- NOTE | 2019-12-03 06:06 | NUR ---
Dressing change to tip of left great toe and left plantar aspect of foot per physician orders. Patient tolerate dressing changes without diffcuilty. Call light within reach and bed in low position.
--- NOTE | 2019-12-03 06:34 | NUR ---
INFORMED OF NEW WOUND TO RIGHT BUTTOCK STAGE I W/ WOUND CARE RECOMMENDATION OF CALAZIME CREAM. STATED OK TO PLACE ORDER.
[2019-12-03 07:22] LABS: HEMATOCRIT 33.6 % (42.0-52.0); MEAN CELL VOLUME 95.7 fl (80.0-94.0); MEAN CORPUSCULAR HGB 31.3 pg (27.0-31.0); MEAN CORPUSCULAR HGB CONC 32.7 g/dl (33.0-37.0); NUCLEATED RED BLOOD CELL 0.2 % (0.0-0.0); PLATELET COUNT AUTOMATED 231 10*3/uL (130-400); RED BLOOD COUNT 3.51 10*6/uL (4.50-5.90); RED CELL DISTRI WIDTH 14.6 % (0-14.5); WHITE BLOOD COUNT 16.8 10*3/uL (4.8-10.8)
[2019-12-03 07:33] LABS: ACT PARTIAL THROMBO TIME 25.4 SECONDS (20.0-32.1); INTERNATIONAL NORM RATIO 1.3 (2.0-3.5)
--- NOTE | 2019-12-03 07:36 | NUR ---
PHYSICAL THERAPY CO-SIGN I approve of the Physical Therapy notes written above. Denise Bond PT
[2019-12-03 07:53] LABS: ALBUMIN 3.3 gm/dl (3.1-4.5); CREATININE 1.5 mg/dL (0.70-1.30); POTASSIUM 3.9 mmol/L (3.5-5.1)
--- NOTE | 2019-12-03 07:59 | NUR ---
24 HR chart check completed.
[2019-12-03 08:00] VITALS: BP 104/56
[2019-12-03 08:01] LABS: PLATELET SUFFICIENCY NORMAL (NORMAL); POLYCHROMASIA SLIGHT; TARGET CELLS FEW; TOTAL CELLS COUNTED 100 #CELLS
--- NOTE | 2019-12-03 08:42 | NUR ---
Dr. Omer notified of wound care recommendations
--- NOTE | 2019-12-03 09:24 | NUR ---
ROUTE JUMPER FAXED UPDATES TO [facility].
--- NOTE | 2019-12-03 09:35 | NUR ---
PHYSICAL THERAPY Patient seen this am 1;1 for therapy visit and was resting supine in bed upon therapist arrival. Patient identified by name / and reports no c/o's pain at this time, however stated several times he did not want to do anything. Patient needed a little encouragment, along with education on benefits of active therapy participation, then agreed to sit up on EOB. Patient presented with increased B LE edema, transfering supine to sit EOB with MOD A x 2. Patient resting HR 98-110 bpm and tolerated 4-5 minutes static EOB sit, CGA. Patient HR 113-120 bpm while sitting, then completed sit to stand transfer at bedside, use of wh walker standing support, MIN A and tolerated approx 90 seconds static standing. Patient HR increased to 132 bpm while standing and demonstrated quick onset of fatigue. Patient returned to supine in bed and remained with call light, tray table, telephone, bed alarm for safety. Will continue per POC as tolerated, total treatment time 17 minutes. Ming Lemons, CLERK FUNERAL DETAIL
--- NOTE | 2019-12-03 09:45 | NUR ---
OT NOTE Pt seen this date 1:1 for 22 min therapy session. Upon arrival pt supine in bed w bed alarm activated and receiving 2LO2 via NC which remained intact for entire session. Pt identified by name and and had no c/o pain this date. Pt able to verbalize proper spinal precautions of no bending, twisting or lifting which were maintained for entire session. At rest supine in bed pts HR read 98-110 bpm. Pt completed transfer from supine to seated at EOB w Mod A x2. Pt sat at EOB for 3 min w SBA and was educated on proper posture w fair followthrough. Pt required Max A to kathy socks d/t spinal precautions of no bending. Then pt stood from EOB w Min A x2 w ww. Pt stood for 1 min 30 sec where HR read 132 bpm before requesting to sit d/t fatigue. Pt returned to seated at EOB w ww and Min A where he sat for 6 min w SBA w HR returning to 113-120 bpm. Pt returned to supine in bed w Mod A x2. At end of session pt supine in bed w bed alarm activated, call light in reach and bedside table in place. Continue w recommended D/C to SNF. Cherri Armendariz, [facility]/Colin
[2019-12-03 12:00] VITALS: BP 124/59
--- NOTE | 2019-12-03 12:56 | NUR ---
Nutrition Support Note: Pt receiving Glucerna TID with meals. Appetite is good; 100% intakes. Wound to left buttock noted. Albumin 3.3. Continue encouraging 100% intake of meals and supplements. Will continue to monitor. Alicja Harkins [employer] Dietetic Student
--- NOTE | 2019-12-03 13:49 | NUR ---
BEHAVIORAL PSYCHOLOGIST NOTIFIED OF THE PATIENT DISCHARGE. BEHAVIORAL PSYCHOLOGIST SPOKE WITH CONNIE STEEN. BEHAVIORAL PSYCHOLOGIST SPOKE WITH MARGARETH TIPTON AND ARRANGED FOR A 5PM TRANSPORT TO [facility]. BEHAVIORAL PSYCHOLOGIST NOTIFED WILFREDO ALLEN, ANGELO, AND LEFT MESSAGE FOR PATIENTS SON LUZ MARIA. BEHAVIORAL PSYCHOLOGIST FAXED DISCHARGE SUMMARY AND SCRIPT TO [facility]. BEHAVIORAL PSYCHOLOGIST PLACED SCRIPT IN PATIENTS WHITE FOLDER. BEHAVIORAL PSYCHOLOGIST TO FAX DEMOGRAPHICS TO [facility].
--- NOTE | 2019-12-03 15:00 | NUR ---
DISCHARGE PICTURES WERE NOT TAKEN. PATIENT STATED THAT HE DID NOT CARE IF I NEEDED TO TAKE THE PICTURE HE DID NOT WANT TO TURN AT THIS TIME.
--- NOTE | 2019-12-03 15:06 | NUR ---
CALLED NURSE TO NURSE TO ANDERS AT [facility]. SHE ASKED THAT I FAX OVER A LIST OF PATIENTS MEDICATIONS AND NARCOTIC SCRIPTS TO [phone].
[2019-12-03] MEDS ORDERED: NEURONTIN300 MG PO (15:14)
[2019-12-03] MEDS ORDERED: TRAMADOL HCL50 MG PO (15:16)
[2019-12-03 16:00] VITALS: BP 110/63
--- NOTE | 2019-12-03 17:00 | NUR ---
Discharge instructions reviewed with patient/family. Patient receptive and verbalizes understanding. Follow-up care arranged. Written instructions given to patient/family. IV WAS REMOVED AND MONITOR WAS REMOVED. CELSA BARBOSA
--- NOTE | 2019-12-04 07:41 | NUR ---
OCCUPATIONAL THERAPY CO-SIGN I approve of the Occupational Therapy notes written above. LATRICIA IRWIN, OTR/L
--- NOTE | 2019-12-04 07:43 | NUR ---
PHYSICAL THERAPY CO-SIGN I approve of the Physical Therapy notes written above. Denise Bond PT
== END 2019-12-03 17:00 | disposition other institution (70) | DRG 871 ==
LOC: ED 12:08 → EDHOLD 15:41 → 5E 15:41 → EDHOLD 15:41 → 5E 16:03
PROVIDERS: Emergency Medicine; Internal Medicine; Registered Nurse; Student in an Organized Health Care Education/Training Program; ADMIT Emergency Medicine
PROC: 5A09357 Assistance with Respiratory Ventilation, Less than 24 Consecutive Hours, Continuous Positive Airway Pressure (ICD-10-PCS; principal; 2019-11-26)
PROC: 5A09357 Assistance with Respiratory Ventilation, Less than 24 Consecutive Hours, Continuous Positive Airway Pressure (ICD-10-PCS; 2019-11-29)
PROC: 5A09357 Assistance with Respiratory Ventilation, Less than 24 Consecutive Hours, Continuous Positive Airway Pressure (ICD-10-PCS; 2019-12-02)
DX: A41.9 Sepsis, unspecified organism (principal); I50.33 Acute on chronic diastolic (congestive) heart failure; J96.01 Acute respiratory failure with hypoxia; E87.1 Hypo-osmolality and hyponatremia; N17.9 Acute kidney failure, unspecified; I13.0 Hypertensive heart and chronic kidney disease with heart failure and stage 1 through stage 4 chronic kidney disease, or unspecified chronic kidney disease; E44.0 Moderate protein-calorie malnutrition; M48.56XA Collapsed vertebra, not elsewhere classified, lumbar region, initial encounter for fracture; N13.6 Pyonephrosis; I48.91 Unspecified atrial fibrillation; R74.0 Nonspecific elevation of levels of transaminase and lactic acid dehydrogenase [LDH]; R79.1 Abnormal coagulation profile; N18.3 Chronic kidney disease, stage 3 (moderate); J40 Bronchitis, not specified as acute or chronic; E78.5 Hyperlipidemia, unspecified; I25.10 Atherosclerotic heart disease of native coronary artery without angina pectoris; E03.9 Hypothyroidism, unspecified; N40.0 Benign prostatic hyperplasia without lower urinary tract symptoms; J44.9 Chronic obstructive pulmonary disease, unspecified; C61 Malignant neoplasm of prostate; E66.9 Obesity, unspecified; M10.10 Lead-induced gout, unspecified site; D53.9 Nutritional anemia, unspecified; L89.322 Pressure ulcer of left buttock, stage 2; L89.312 Pressure ulcer of right buttock, stage 2; E11.22 Type 2 diabetes mellitus with diabetic chronic kidney disease; E11.65 Type 2 diabetes mellitus with hyperglycemia; Z66 Do not resuscitate; Z20.828 Contact with and (suspected) exposure to other viral communicable diseases; Z51.5 Encounter for palliative care; E11.40 Type 2 diabetes mellitus with diabetic neuropathy, unspecified; B95.2 Enterococcus as the cause of diseases classified elsewhere; I35.2 Nonrheumatic aortic (valve) stenosis with insufficiency; M81.0 Age-related osteoporosis without current pathological fracture; T56.0X1S Toxic effect of lead and its compounds, accidental (unintentional), sequela; Z79.4 Long term (current) use of insulin; Z88.0 Allergy status to penicillin; Z90.49 Acquired absence of other specified parts of digestive tract; Z82.49 Family history of ischemic heart disease and other diseases of the circulatory system; Z84.1 Family history of disorders of kidney and ureter; Z95.5 Presence of coronary angioplasty implant and graft; Z79.899 Other long term (current) drug therapy; Z79.01 Long term (current) use of anticoagulants; Z68.33 Body mass index [BMI] 33.0-33.9, adult

== ENCOUNTER 2020-09-02 11:59 | Inpatient (IN) | payer MEDICARE, OTHER ==
[~2020-09-02] VITALS: Ht 172.7 cm; Wt 85.0 kg
[~2020-09-02 11:59] MED LIST changes: +AQUAPHOR WITH N50 GM T; +ARTIFICIAL TEAR1514 OP; +CALMOSEPTINE OI71 GM T; +CEFTRIAXONE1 GM IM; +CHOLESTYRAMINE P4 GM PO; +COUMADIN1 M1 PO; +Coumadin3 MG PO; +ICY HOT BALM99.2 GM T; +INSULIN LI100 UNIT/1 SQ; +LACTULOSE20 GM/30 M PO; +LASIX10 MG/ML IM; +MAPAP EXTRA ST500 MG PO; +NEURONTIN300 MG PO; +TRAMADOL HCL50 MG PO; +ZINC50 M3 PO
[2020-09-02 12:01] VITALS: BP 104/52
[2020-09-02 13:00] LABS: BASO # 0.1 10*3/uL (0.0-0.1); BASO % 0.4 % (0.0-1.0); EOS # 0.1 10*3/uL (0.0-0.4); EOS % 0.8 % (1.0-4.0); HEMATOCRIT 34.2 % (42.0-52.0); LYMPH # 2.3 10*3/uL (1.3-4.4); LYMPH % 14.4 % (27.0-41.0); MEAN CELL VOLUME 98.6 fl (80.0-94.0); MEAN CORPUSCULAR HGB 31.7 pg (27.0-31.0); MEAN CORPUSCULAR HGB CONC 32.2 g/dl (33.0-37.0); MEAN PLATELET VOLUME 9.5 fl (9.6-12.3); MONO # 1.2 10*3/uL (0.1-1.0); MONO % 7.5 % (3.0-9.0); NEUT # 12.1 10*3/uL (2.3-7.9); NEUT % 76.4 % (47.0-73.0); PLATELET COUNT AUTOMATED 187 10*3/uL (130-400); RED BLOOD COUNT 3.47 10*6/uL (4.50-5.90); RED CELL DISTRI WIDTH 13.9 % (0-14.5); WHITE BLOOD COUNT 15.8 10*3/uL (4.8-10.8)
[2020-09-02 13:14] LABS: ACT PARTIAL THROMBO TIME 44.1 SECONDS (20.0-32.1); INTERNATIONAL NORM RATIO 1.9 (2.0-3.5)
[2020-09-02 13:15] LABS: ALBUMIN 2.9 gm/dl (3.1-4.5); CREATININE 1.71 mg/dL (0.70-1.30); POTASSIUM 3.9 mmol/L (3.5-5.1); TOTAL PROTEIN 7.4 gm/dL (6.4-8.2); TROPONIN I 0.033 ng/ml (<0.045)
[2020-09-02 14:37] LABS: BILIRUBIN Negative (Negative); BLOOD 3+ (Negative); CLARITY Turbid (Clear); COLOR Orange (Yellow); GLUCOSE Negative (Negative); KETONE Negative (Negative); LEUKO ESTERASE 3+ (Negative); NITRITE Positive (Negative); UROBILINOGEN 0.2 E.U./dl (0.0-1.0)
[2020-09-02 14:44] VITALS: BP 113/54
[2020-09-02 14:44] LABS: WBC TNTC wbc/hpf (0-5)
[2020-09-02 14:58] VITALS: BP 114/52
[2020-09-02 14:59] VITALS: BP 113/53
[2020-09-02 17:10] VITALS: BP 133/58
[2020-09-02] MEDS ORDERED: BUMETANIDE1 MG PO (17:56)
[2020-09-02] MEDS ORDERED: CALMOSEPTINE OI71 GM T (17:58)
[2020-09-02] MEDS ORDERED: CYMBALTA60 MG PO (17:59)
[2020-09-02] MEDS ORDERED: ENULOSE10 GM/151 PO (18:00)
[2020-09-02] MEDS ORDERED: FISH OIL CONC1000 M1 PO (18:01)
[2020-09-02] MEDS ORDERED: MELATONIN3 MG PO (18:04)
[2020-09-02] MEDS ORDERED: NYSTATIN CREAM15 GM T (18:07)
[2020-09-02] MEDS ORDERED: NU-MAG71.5 MG PO (18:10)
[2020-09-02] MEDS ORDERED: K-LOR 20MEQ20 ME1 PO (18:13)
[2020-09-02] MEDS ORDERED: PROBIOTIC1 EAC4 PO (18:14)
[2020-09-02] MEDS ORDERED: VITAMIN D31250 MC1 PO (18:16)
[2020-09-02] MEDS ORDERED: WARFARIN SODIUM4 MG PO (18:17)
[2020-09-02] MEDS ORDERED: JANTOVEN5 MG PO (18:17)
[2020-09-02] MEDS ORDERED: LOPERAMIDE HCL2 MG PO (18:19)
[2020-09-02 20:00] VITALS: BP 113/54
[2020-09-03 00:05] VITALS: BP 107/59
[2020-09-03 06:02] LABS: ALBUMIN 2.8 gm/dl (3.1-4.5); ALKALINE PHOSPHATASE 116 U/L (45-117); BUN 29 mg/dl (7-24); CHLORIDE 103 mmol/L (98-107); CREATININE 1.29 mg/dL (0.70-1.30); POTASSIUM 3.7 mmol/L (3.5-5.1); SGOT/AST 31 IU/L (3-35); SGPT/ALT 25 U/L (12-78); SODIUM 136 mmol/L (136-145); TOTAL PROTEIN 7.5 gm/dL (6.4-8.2)
[2020-09-03 06:17] LABS: BASO # 0.1 10*3/uL (0.0-0.1); BASO % 0.4 % (0.0-1.0); LYMPH # 1.9 10*3/uL (1.3-4.4); MEAN CELL VOLUME 98.6 fl (80.0-94.0); MEAN CORPUSCULAR HGB 31.6 pg (27.0-31.0); MEAN CORPUSCULAR HGB CONC 32.1 g/dl (33.0-37.0); MEAN PLATELET VOLUME 9.6 fl (9.6-12.3); MONO # 0.9 10*3/uL (0.1-1.0); MONO % 6.6 % (3.0-9.0); NEUT # 10.8 10*3/uL (2.3-7.9); NEUT % 78.6 % (47.0-73.0); PLATELET COUNT AUTOMATED 199 10*3/uL (130-400); RED BLOOD COUNT 3.45 10*6/uL (4.50-5.90); RED CELL DISTRI WIDTH 13.8 % (0-14.5); WHITE BLOOD COUNT 13.7 10*3/uL (4.8-10.8)
[2020-09-03 06:18] LABS: INTERNATIONAL NORM RATIO 2.1 (2.0-3.5)
[2020-09-03 08:00] VITALS: BP 120/70; BP 126/72
[2020-09-03 12:00] VITALS: BP 110/60
[2020-09-03 16:12] VITALS: BP 106/38
[2020-09-03 20:00] VITALS: BP 149/82
[2020-09-04] VITALS: BP 111/59
[2020-09-04 02:24] LABS: BASO # 0.1 10*3/uL (0.0-0.1); BASO % 0.5 % (0.0-1.0); HEMATOCRIT 34.9 % (42.0-52.0); LYMPH # 2.3 10*3/uL (1.3-4.4); LYMPH % 18.1 % (27.0-41.0); MEAN CELL VOLUME 95.6 fl (80.0-94.0); MEAN CORPUSCULAR HGB 31.5 pg (27.0-31.0); MEAN PLATELET VOLUME 9.5 fl (9.6-12.3); MONO # 1.2 10*3/uL (0.1-1.0); MONO % 9.1 % (3.0-9.0); NEUT # 9.2 10*3/uL (2.3-7.9); NEUT % 71.8 % (47.0-73.0); PLATELET COUNT AUTOMATED 201 10*3/uL (130-400); RED BLOOD COUNT 3.65 10*6/uL (4.50-5.90); RED CELL DISTRI WIDTH 13.9 % (0-14.5); WHITE BLOOD COUNT 12.8 10*3/uL (4.8-10.8)
[2020-09-04 08:00] VITALS: BP 143/70
[2020-09-04 12:00] VITALS: BP 140/68
[2020-09-04 16:00] VITALS: BP 144/84
[2020-09-04 20:00] VITALS: BP 134/72
[2020-09-05] VITALS: BP 108/43
[2020-09-05 08:00] VITALS: BP 113/77
[2020-09-05 12:00] VITALS: BP 106/76
[2020-09-05] MEDS ORDERED: OMNICEF300 MG PO (14:06)
[2020-09-05 16:00] VITALS: BP 122/64
== END 2020-09-05 19:32 | DRG 689 ==
LOC: ED 11:59 → 4E 15:34 → EDHOLD 15:34 → 4E 17:21
PROVIDERS: Internal Medicine; Physician Assistant; Registered Nurse; ADMIT Family Medicine; ATTEND Family Medicine
PROC: 0HBRXZZ Excision of Toe Nail, External Approach (ICD-10-PCS; principal; 2020-09-04)
PROC: 0HBRXZZ Excision of Toe Nail, External Approach (ICD-10-PCS; 2020-09-04)
PROC: 0HBRXZZ Excision of Toe Nail, External Approach (ICD-10-PCS; 2020-09-04)
PROC: 0HBRXZZ Excision of Toe Nail, External Approach (ICD-10-PCS; 2020-09-04)
PROC: 0HBRXZZ Excision of Toe Nail, External Approach (ICD-10-PCS; 2020-09-04)
PROC: 0HBRXZZ Excision of Toe Nail, External Approach (ICD-10-PCS; 2020-09-04)
PROC: 0HBRXZZ Excision of Toe Nail, External Approach (ICD-10-PCS; 2020-09-04)
PROC: 0HBRXZZ Excision of Toe Nail, External Approach (ICD-10-PCS; 2020-09-04)
PROC: 0HBRXZZ Excision of Toe Nail, External Approach (ICD-10-PCS; 2020-09-04)
PROC: 0HBRXZZ Excision of Toe Nail, External Approach (ICD-10-PCS; 2020-09-04)
DX: N30.01 Acute cystitis with hematuria (principal); N17.0 Acute kidney failure with tubular necrosis; G93.41 Metabolic encephalopathy; I13.0 Hypertensive heart and chronic kidney disease with heart failure and stage 1 through stage 4 chronic kidney disease, or unspecified chronic kidney disease; I50.22 Chronic systolic (congestive) heart failure; E44.0 Moderate protein-calorie malnutrition; E87.1 Hypo-osmolality and hyponatremia; I48.19 Other persistent atrial fibrillation; N18.32 Chronic kidney disease, stage 3b; J44.9 Chronic obstructive pulmonary disease, unspecified; D53.9 Nutritional anemia, unspecified; E11.22 Type 2 diabetes mellitus with diabetic chronic kidney disease; Z96.0 Presence of urogenital implants; M10.9 Gout, unspecified; I25.10 Atherosclerotic heart disease of native coronary artery without angina pectoris; N40.1 Benign prostatic hyperplasia with lower urinary tract symptoms; E78.2 Mixed hyperlipidemia; B35.1 Tinea unguium; S31.829A Unspecified open wound of left buttock, initial encounter; S31.819A Unspecified open wound of right buttock, initial encounter; Z66 Do not resuscitate; Z51.5 Encounter for palliative care; I87.2 Venous insufficiency (chronic) (peripheral); Z20.822 Contact with and (suspected) exposure to COVID-19; Z88.0 Allergy status to penicillin; Z95.5 Presence of coronary angioplasty implant and graft; Z90.49 Acquired absence of other specified parts of digestive tract; Z82.49 Family history of ischemic heart disease and other diseases of the circulatory system; Z84.1 Family history of disorders of kidney and ureter; Z79.4 Long term (current) use of insulin; Z68.28 Body mass index [BMI] 28.0-28.9, adult; X58.XXXA Exposure to other specified factors, initial encounter; Y93.89 Activity, other specified; Y92.89 Other specified places as the place of occurrence of the external cause; Y99.8 Other external cause status

== ENCOUNTER 2020-11-12 10:23 | Inpatient (IN) | payer MEDICARE, OTHER ==
[~2020-11-12] VITALS: Ht 177.8 cm; Wt 80.8 kg
[2020-11-12] VITALS (7 sets, daily range): BP systolic 83–112; BP diastolic 42–65
[~2020-11-12 10:23] MED LIST changes: +CYMBALTA60 MG PO; +ENULOSE10 GM/151 PO; +FISH OIL CONC1000 M1 PO; +JANTOVEN5 MG PO; +K-LOR 20MEQ20 ME1 PO; +LOPERAMIDE HCL2 MG PO; +MELATONIN3 MG PO; +NYSTATIN CREAM15 GM T; +OMNICEF300 MG PO; +PROBIOTIC1 EAC4 PO; +VITAMIN D31250 MC1 PO; +WARFARIN SODIUM4 MG PO
[2020-11-12 10:47] LABS: HEMATOCRIT 33.4 % (42.0-52.0); MEAN CELL VOLUME 97.9 fl (80.0-94.0); MEAN CORPUSCULAR HGB 32.3 pg (27.0-31.0); MEAN CORPUSCULAR HGB CONC 32.9 g/dl (33.0-37.0); MEAN PLATELET VOLUME 9.4 fl (9.6-12.3); PLATELET COUNT AUTOMATED 300 10*3/uL (130-400); RED BLOOD COUNT 3.41 10*6/uL (4.50-5.90); RED CELL DISTRI WIDTH 14.2 % (0-14.5); WHITE BLOOD COUNT 21.5 10*3/uL (4.8-10.8)
[2020-11-12 11:02] LABS: ACT PARTIAL THROMBO TIME 42.7 SECONDS (20.0-32.1); INTERNATIONAL NORM RATIO 1.9 (2.0-3.5)
[2020-11-12 11:04] LABS: BASOPHILS 1 % (0-1); OVALOCYTES FEW; PLATELET SUFFICIENCY NORMAL (NORMAL); POLYCHROMASIA SLIGHT; TOTAL CELLS COUNTED 100 #CELLS; VACUOLATION OF NEUTROPHILS SLIGHT
[2020-11-12 11:06] LABS: ALBUMIN 2.8 gm/dl (3.1-4.5); CREATININE 1.95 mg/dL (0.70-1.30); POTASSIUM 4.5 mmol/L (3.5-5.1); TOTAL PROTEIN 7.8 gm/dL (6.4-8.2)
[2020-11-12 11:09] LABS: TROPONIN I 0.019 ng/ml (<0.045)
[2020-11-12 11:21] LABS: BILIRUBIN Negative (Negative); BLOOD 3+ (Negative); CLARITY Turbid (Clear); COLOR Orange (Yellow); GLUCOSE Negative (Negative); KETONE Negative (Negative); LEUKO ESTERASE 3+ (Negative); NITRITE Negative (Negative)
[2020-11-12 11:34] LABS: BACTERIA 4+; RBC TNTC rbc/hpf (0-2); WBC TNTC wbc/hpf (0-5)
[2020-11-12 11:58] LABS: FERRITIN 755.9 ng/mL (22.0-322.0)
[2020-11-13] VITALS: BP 108/40
[2020-11-13 06:30] LABS: BASO # 0.1 10*3/uL (0.0-0.1); BASO % 0.3 % (0.0-1.0); HEMATOCRIT 30.8 % (42.0-52.0); LYMPH # 1.1 10*3/uL (1.3-4.4); MEAN CELL VOLUME 100.3 fl (80.0-94.0); MEAN CORPUSCULAR HGB 31.6 pg (27.0-31.0); MEAN CORPUSCULAR HGB CONC 31.5 g/dl (33.0-37.0); MEAN PLATELET VOLUME 9.6 fl (9.6-12.3); MONO # 0.9 10*3/uL (0.1-1.0); NEUT # 13.2 10*3/uL (2.3-7.9); NEUT % 86.2 % (47.0-73.0); PLATELET COUNT AUTOMATED 252 10*3/uL (130-400); RED BLOOD COUNT 3.07 10*6/uL (4.50-5.90); RED CELL DISTRI WIDTH 14.3 % (0-14.5); WHITE BLOOD COUNT 15.3 10*3/uL (4.8-10.8)
[2020-11-13 06:39] LABS: INTERNATIONAL NORM RATIO 1.8 (2.0-3.5)
[2020-11-13 06:58] LABS: ALBUMIN 2.4 gm/dl (3.1-4.5); CREATININE 1.54 mg/dL (0.70-1.30); POTASSIUM 3.5 mmol/L (3.5-5.1); TOTAL PROTEIN 7.1 gm/dL (6.4-8.2)
[2020-11-13 08:00] VITALS: BP 113/51
[2020-11-13 12:00] VITALS: BP 133/66
[2020-11-13 16:00] VITALS: BP 110/54
[2020-11-13 20:00] VITALS: BP 142/79
[2020-11-14] VITALS: BP 138/76; BP 155/85
[2020-11-14 08:14] VITALS: BP 167/84
[2020-11-14 12:28] VITALS: BP 115/67
[2020-11-14 16:12] VITALS: BP 161/75
[2020-11-14 20:00] VITALS: BP 108/70
[2020-11-15] VITALS: BP 129/93
[2020-11-15 07:56] LABS: BASO # 0.1 10*3/uL (0.0-0.1); BASO % 0.4 % (0.0-1.0); HEMATOCRIT 30.8 % (42.0-52.0); LYMPH # 1.7 10*3/uL (1.3-4.4); LYMPH % 10.6 % (27.0-41.0); MEAN CELL VOLUME 98.1 fl (80.0-94.0); MEAN CORPUSCULAR HGB 31.5 pg (27.0-31.0); MEAN CORPUSCULAR HGB CONC 32.1 g/dl (33.0-37.0); MEAN PLATELET VOLUME 9.1 fl (9.6-12.3); MONO # 1.5 10*3/uL (0.1-1.0); NEUT # 12.7 10*3/uL (2.3-7.9); NEUT % 79.3 % (47.0-73.0); PLATELET COUNT AUTOMATED 215 10*3/uL (130-400); RED BLOOD COUNT 3.14 10*6/uL (4.50-5.90); RED CELL DISTRI WIDTH 14.5 % (0-14.5); WHITE BLOOD COUNT 16.1 10*3/uL (4.8-10.8)
[2020-11-15 08:05] LABS: INTERNATIONAL NORM RATIO 1.4 (2.0-3.5)
[2020-11-15 08:07] LABS: BUN 19 mg/dl (7-24); CHLORIDE 101 mmol/L (98-107); CREATININE 1.06 mg/dL (0.70-1.30); POTASSIUM 3.4 mmol/L (3.5-5.1); SODIUM 135 mmol/L (136-145)
[2020-11-15 08:16] VITALS: BP 140/89
[2020-11-15 12:21] VITALS: BP 129/81
[2020-11-15 16:05] VITALS: BP 117/63
[2020-11-15 20:00] VITALS: BP 137/77
[2020-11-16] VITALS: BP 123/66
[2020-11-16 06:10] LABS: BASO # 0.1 10*3/uL (0.0-0.1); BASO % 0.5 % (0.0-1.0); HEMATOCRIT 31.8 % (42.0-52.0); LYMPH # 1.7 10*3/uL (1.3-4.4); LYMPH % 12.4 % (27.0-41.0); MEAN CELL VOLUME 98.8 fl (80.0-94.0); MEAN CORPUSCULAR HGB 31.7 pg (27.0-31.0); MEAN CORPUSCULAR HGB CONC 32.1 g/dl (33.0-37.0); MEAN PLATELET VOLUME 9.5 fl (9.6-12.3); MONO % 7.1 % (3.0-9.0); NEUT # 10.8 10*3/uL (2.3-7.9); NEUT % 79.3 % (47.0-73.0); PLATELET COUNT AUTOMATED 236 10*3/uL (130-400); RED BLOOD COUNT 3.22 10*6/uL (4.50-5.90); RED CELL DISTRI WIDTH 14.2 % (0-14.5); WHITE BLOOD COUNT 13.6 10*3/uL (4.8-10.8)
[2020-11-16 06:30] LABS: ALKALINE PHOSPHATASE 137 U/L (45-117); BUN 21 mg/dl (7-24); CHLORIDE 102 mmol/L (98-107); CREATININE 1.07 mg/dL (0.70-1.30); POTASSIUM 3.9 mmol/L (3.5-5.1); SGOT/AST 245 IU/L (3-35); SGPT/ALT 135 U/L (12-78); SODIUM 134 mmol/L (136-145); TOTAL PROTEIN 7.5 gm/dL (6.4-8.2)
[2020-11-16 07:56] LABS: INTERNATIONAL NORM RATIO 1.4 (2.0-3.5)
[2020-11-16 08:00] VITALS: BP 119/89
[2020-11-16 12:00] VITALS: BP 148/89
[2020-11-16 16:00] VITALS: BP 116/60
[2020-11-16 20:00] VITALS: BP 104/61
[2020-11-17] VITALS: BP 113/80
[2020-11-17 06:09] LABS: ALBUMIN 2.2 gm/dl (3.1-4.5); ALKALINE PHOSPHATASE 187 U/L (45-117); BUN 24 mg/dl (7-24); CHLORIDE 103 mmol/L (98-107); CREATININE 1.08 mg/dL (0.70-1.30); POTASSIUM 3.4 mmol/L (3.5-5.1); SGOT/AST 589 IU/L (3-35); SGPT/ALT 326 U/L (12-78); SODIUM 137 mmol/L (136-145); TOTAL PROTEIN 7.2 gm/dL (6.4-8.2)
[2020-11-17 06:16] LABS: INTERNATIONAL NORM RATIO 1.6 (2.0-3.5)
[2020-11-17 06:17] LABS: BASO # 0.1 10*3/uL (0.0-0.1); BASO % 0.8 % (0.0-1.0); EOS # 0.1 10*3/uL (0.0-0.4); EOS % 0.7 % (1.0-4.0); HEMATOCRIT 30.7 % (42.0-52.0); LYMPH # 2.4 10*3/uL (1.3-4.4); MEAN CELL VOLUME 97.8 fl (80.0-94.0); MEAN CORPUSCULAR HGB 31.5 pg (27.0-31.0); MEAN CORPUSCULAR HGB CONC 32.2 g/dl (33.0-37.0); MEAN PLATELET VOLUME 9.9 fl (9.6-12.3); MONO # 0.9 10*3/uL (0.1-1.0); MONO % 7.1 % (3.0-9.0); NEUT # 8.5 10*3/uL (2.3-7.9); NEUT % 70.8 % (47.0-73.0); PLATELET COUNT AUTOMATED 287 10*3/uL (130-400); RED BLOOD COUNT 3.14 10*6/uL (4.50-5.90); RED CELL DISTRI WIDTH 14.6 % (0-14.5); WHITE BLOOD COUNT 11.9 10*3/uL (4.8-10.8)
[2020-11-17 08:00] VITALS: BP 104/74
[2020-11-17 12:00] VITALS: BP 118/65
[2020-11-17 16:00] VITALS: BP 107/55
[2020-11-17 20:00] VITALS: BP 104/67
[2020-11-18] VITALS: BP 119/57
[2020-11-18 05:31] LABS: ALBUMIN 2.1 gm/dl (3.1-4.5); ALKALINE PHOSPHATASE 174 U/L (45-117); BUN 21 mg/dl (7-24); CHLORIDE 104 mmol/L (98-107); CREATININE 1.07 mg/dL (0.70-1.30); POTASSIUM 3.9 mmol/L (3.5-5.1); SGOT/AST 269 IU/L (3-35); SGPT/ALT 237 U/L (12-78); SODIUM 135 mmol/L (136-145); TOTAL PROTEIN 7.2 gm/dL (6.4-8.2)
[2020-11-18 06:02] LABS: BASO # 0.1 10*3/uL (0.0-0.1); BASO % 0.5 % (0.0-1.0); HEMATOCRIT 31.1 % (42.0-52.0); LYMPH # 1.6 10*3/uL (1.3-4.4); LYMPH % 11.8 % (27.0-41.0); MEAN CELL VOLUME 99.7 fl (80.0-94.0); MEAN CORPUSCULAR HGB 32.1 pg (27.0-31.0); MEAN CORPUSCULAR HGB CONC 32.2 g/dl (33.0-37.0); MEAN PLATELET VOLUME 9.9 fl (9.6-12.3); MONO # 0.8 10*3/uL (0.1-1.0); MONO % 6.1 % (3.0-9.0); NEUT # 10.7 10*3/uL (2.3-7.9); NEUT % 80.9 % (47.0-73.0); PLATELET COUNT AUTOMATED 290 10*3/uL (130-400); RED BLOOD COUNT 3.12 10*6/uL (4.50-5.90); RED CELL DISTRI WIDTH 14.3 % (0-14.5); WHITE BLOOD COUNT 13.2 10*3/uL (4.8-10.8)
[2020-11-18 06:08] LABS: INTERNATIONAL NORM RATIO 1.8 (2.0-3.5)
[2020-11-18 08:00] VITALS: BP 148/90
[2020-11-18 12:00] VITALS: BP 136/92
[2020-11-18 16:00] VITALS: BP 99/56
[2020-11-18 20:03] VITALS: BP 115/68
[2020-11-19] VITALS: BP 124/79
[2020-11-19] MEDS ORDERED: JANTOVEN6 M1 PO (07:38)
[2020-11-19 07:57] LABS: BASO # 0.1 10*3/uL (0.0-0.1); BASO % 0.5 % (0.0-1.0); HEMATOCRIT 31.3 % (42.0-52.0); LYMPH # 1.7 10*3/uL (1.3-4.4); LYMPH % 13.3 % (27.0-41.0); MEAN CELL VOLUME 96.9 fl (80.0-94.0); MEAN CORPUSCULAR HGB 31.9 pg (27.0-31.0); MEAN CORPUSCULAR HGB CONC 32.9 g/dl (33.0-37.0); MEAN PLATELET VOLUME 9.2 fl (9.6-12.3); MONO # 0.8 10*3/uL (0.1-1.0); NEUT # 10.2 10*3/uL (2.3-7.9); NEUT % 79.3 % (47.0-73.0); PLATELET COUNT AUTOMATED 290 10*3/uL (130-400); RED BLOOD COUNT 3.23 10*6/uL (4.50-5.90); WHITE BLOOD COUNT 12.9 10*3/uL (4.8-10.8)
[2020-11-19 08:00] VITALS: BP 126/92
[2020-11-19 08:33] LABS: ALBUMIN 2.4 gm/dl (3.1-4.5); CREATININE 1.37 mg/dL (0.70-1.30); TOTAL PROTEIN 7.8 gm/dL (6.4-8.2)
[2020-11-19 12:00] VITALS: BP 104/62
[2020-11-19 16:00] VITALS: BP 94/51
[2020-11-19 20:00] VITALS: BP 97/65
[2020-11-20] VITALS: BP 109/74
[2020-11-20 08:00] VITALS: BP 102/72
[2020-11-20 08:01] LABS: BASO # 0.1 10*3/uL (0.0-0.1); BASO % 0.6 % (0.0-1.0); HEMATOCRIT 32.4 % (42.0-52.0); LYMPH # 2.1 10*3/uL (1.3-4.4); LYMPH % 15.7 % (27.0-41.0); MEAN CELL VOLUME 98.2 fl (80.0-94.0); MEAN CORPUSCULAR HGB 30.6 pg (27.0-31.0); MEAN CORPUSCULAR HGB CONC 31.2 g/dl (33.0-37.0); MEAN PLATELET VOLUME 9.6 fl (9.6-12.3); MONO % 7.1 % (3.0-9.0); NEUT # 10.2 10*3/uL (2.3-7.9); NEUT % 75.4 % (47.0-73.0); PLATELET COUNT AUTOMATED 323 10*3/uL (130-400); RED CELL DISTRI WIDTH 14.2 % (0-14.5); WHITE BLOOD COUNT 13.5 10*3/uL (4.8-10.8)
[2020-11-20 08:43] LABS: ALBUMIN 2.3 gm/dl (3.1-4.5); CREATININE 1.48 mg/dL (0.70-1.30); POTASSIUM 3.7 mmol/L (3.5-5.1); TOTAL PROTEIN 7.6 gm/dL (6.4-8.2)
[2020-11-20 09:22] LABS: INTERNATIONAL NORM RATIO 2.3 (2.0-3.5)
[2020-11-20 12:00] VITALS: BP 108/65
[2020-11-20] MEDS ORDERED: JANTOVEN5 MG PO (12:06)
[2020-11-20] MEDS ORDERED: JANTOVEN6 M1 PO (12:06)
[2020-11-20] MEDS ORDERED: VANCOMYCIN750 MG/152 IV (12:10)
[2020-11-20] MEDS ORDERED: METOPROLOL TART50 M1 PO (12:17)
[2020-11-20] MEDS ORDERED: PAIN-RELIEF85 GM T (12:17)
[2020-11-20] MEDS ORDERED: TOBRADEX 0.1%-0.5 ML OPH (12:17)
== END 2020-11-20 15:48 | DRG 871 ==
LOC: ED 10:23 → EDHOLD 11:57 → 4E 11:57
PROVIDERS: Emergency Medicine; Hospitalist; Internal Medicine; Registered Nurse; Student in an Organized Health Care Education/Training Program; ADMIT Student in an Organized Health Care Education/Training Program; ATTEND Student in an Organized Health Care Education/Training Program
PROC: 02HV33Z Insertion of Infusion Device into Superior Vena Cava, Percutaneous Approach (ICD-10-PCS; principal; 2020-11-18)
PROC: B548ZZA Ultrasonography of Superior Vena Cava, Guidance (ICD-10-PCS; 2020-11-18)
DX: A41.9 Sepsis, unspecified organism (principal); N17.0 Acute kidney failure with tubular necrosis; N30.00 Acute cystitis without hematuria; I48.11 Longstanding persistent atrial fibrillation; E87.2 Acidosis; E44.0 Moderate protein-calorie malnutrition; I50.22 Chronic systolic (congestive) heart failure; I13.0 Hypertensive heart and chronic kidney disease with heart failure and stage 1 through stage 4 chronic kidney disease, or unspecified chronic kidney disease; I95.9 Hypotension, unspecified; E11.22 Type 2 diabetes mellitus with diabetic chronic kidney disease; R65.20 Severe sepsis without septic shock; N40.0 Benign prostatic hyperplasia without lower urinary tract symptoms; J44.9 Chronic obstructive pulmonary disease, unspecified; I25.10 Atherosclerotic heart disease of native coronary artery without angina pectoris; M81.0 Age-related osteoporosis without current pathological fracture; E78.5 Hyperlipidemia, unspecified; M10.9 Gout, unspecified; E11.65 Type 2 diabetes mellitus with hyperglycemia; E11.42 Type 2 diabetes mellitus with diabetic polyneuropathy; Z66 Do not resuscitate; Z51.5 Encounter for palliative care; B95.62 Methicillin resistant Staphylococcus aureus infection as the cause of diseases classified elsewhere; N18.32 Chronic kidney disease, stage 3b; E78.2 Mixed hyperlipidemia; Z88.0 Allergy status to penicillin; Z95.5 Presence of coronary angioplasty implant and graft; Z90.49 Acquired absence of other specified parts of digestive tract; Z82.49 Family history of ischemic heart disease and other diseases of the circulatory system; Z84.1 Family history of disorders of kidney and ureter; Z79.899 Other long term (current) drug therapy; Z79.4 Long term (current) use of insulin; Z20.822 Contact with and (suspected) exposure to COVID-19

== ENCOUNTER 2021-01-28 18:45 | Inpatient (IN) | payer MEDICARE, OTHER ==
[~2021-01-28] VITALS: Ht 175.2 cm; Wt 72.6 kg
[~2021-01-28 18:45] MED LIST changes: +ERGOCAL62.5 MCG PO; +JANTOVEN6 M1 PO; +METOPROLOL TART50 M1 PO; +PAIN-RELIEF85 GM T; +TOBRADEX 0.1%-0.5 ML OPH; +VANCOMYCIN750 MG/152 IV; -VITAMIN D250 MCG PO
[2021-01-28 19:15] VITALS: BP 98/60
[2021-01-28 19:38] LABS: BASO # 0.1 10*3/uL (0.0-0.1); BASO % 0.5 % (0.0-1.0); HEMATOCRIT 35.8 % (42.0-52.0); LYMPH # 2.2 10*3/uL (1.3-4.4); LYMPH % 14.9 % (27.0-41.0); MEAN CELL VOLUME 96.8 fl (80.0-94.0); MEAN CORPUSCULAR HGB 30.8 pg (27.0-31.0); MEAN CORPUSCULAR HGB CONC 31.8 g/dl (33.0-37.0); MONO # 0.8 10*3/uL (0.1-1.0); MONO % 5.5 % (3.0-9.0); NEUT # 11.4 10*3/uL (2.3-7.9); NEUT % 78.7 % (47.0-73.0); PLATELET COUNT AUTOMATED 275 10*3/uL (130-400); RED CELL DISTRI WIDTH 15.2 % (0-14.5); WHITE BLOOD COUNT 14.5 10*3/uL (4.8-10.8)
[2021-01-28 19:39] LABS: BILIRUBIN 1+ (Negative); BLOOD 1+ (Negative); CLARITY Turbid (Clear); COLOR Red (Yellow); GLUCOSE Negative (Negative); KETONE Negative (Negative); LEUKO ESTERASE 3+ (Negative); NITRITE Positive (Negative); SPECIFIC GRAVITY 1.015 (1.001-1.030); UROBILINOGEN 0.2 E.U./dl (0.0-1.0)
[2021-01-28 19:52] LABS: ALBUMIN 3.6 gm/dl (3.1-4.5); CREATININE 3.49 mg/dL (0.70-1.30); POTASSIUM 5.7 mmol/L (3.5-5.1)
[2021-01-28 19:53] LABS: BACTERIA 4+; RBC TNTC rbc/hpf (0-2); WBC TNTC wbc/hpf (0-5)
[2021-01-28 20:08] VITALS: BP 91/49
[2021-01-28 21:32] VITALS: BP 97/62
[2021-01-28 22:13] VITALS: BP 99/56
[2021-01-28 23:26] VITALS: BP 97/48
[2021-01-28] MEDS ORDERED: DIGOX250 MCG PO (23:30)
[2021-01-28 23:39] LABS: CREATININE 3.41 mg/dL (0.70-1.30); POTASSIUM 5.2 mmol/L (3.5-5.1)
[2021-01-28] MEDS ORDERED: BICALUTAMIDE50 MG PO (23:43)
[2021-01-28] MEDS ORDERED: DULOXETINE HCL60 MG PO (23:47)
[2021-01-29] VITALS (12 sets, daily range): BP systolic 90–115; BP diastolic 47–62
[2021-01-29] MEDS ORDERED: MIRTAZAPINE15 M2 PO (00:04)
[2021-01-29] MEDS ORDERED: VICTOZA 2-0.6 MG/0.1 SC (00:05)
[2021-01-29] MEDS ORDERED: ROSUVASTATIN CA10 MG PO (00:05)
[2021-01-29] MEDS ORDERED: LOPRESSOR50 M1 PO (00:12)
[2021-01-29] MEDS ORDERED: LANTUS SOL100 UNIT/1 SC (00:13)
[2021-01-29] MEDS ORDERED: FLORASTOR250 MG PO (00:14)
[2021-01-29] MEDS ORDERED: CLARITIN10 MG PO (00:14)
[2021-01-29] MEDS ORDERED: MAG DELAY64 MG PO (00:14)
[2021-01-29] MEDS ORDERED: ASPERCREME76.5 GM T (00:15)
[2021-01-29 06:01] LABS: BASO # 0.1 10*3/uL (0.0-0.1); BASO % 0.5 % (0.0-1.0); HEMATOCRIT 32.4 % (42.0-52.0); LYMPH # 2.1 10*3/uL (1.3-4.4); MEAN CELL VOLUME 98.5 fl (80.0-94.0); MEAN CORPUSCULAR HGB 30.7 pg (27.0-31.0); MEAN CORPUSCULAR HGB CONC 31.2 g/dl (33.0-37.0); MONO # 0.8 10*3/uL (0.1-1.0); MONO % 6.3 % (3.0-9.0); NEUT # 9.2 10*3/uL (2.3-7.9); NEUT % 75.8 % (47.0-73.0); PLATELET COUNT AUTOMATED 223 10*3/uL (130-400); RED BLOOD COUNT 3.29 10*6/uL (4.50-5.90); RED CELL DISTRI WIDTH 15.1 % (0-14.5); WHITE BLOOD COUNT 12.1 10*3/uL (4.8-10.8)
[2021-01-29 06:14] LABS: ALBUMIN 3.2 gm/dl (3.1-4.5); CREATININE 2.94 mg/dL (0.70-1.30); POTASSIUM 4.9 mmol/L (3.5-5.1); TOTAL PROTEIN 7.7 gm/dL (6.4-8.2)
[2021-01-30] VITALS: BP 113/55; BP 96/44
[2021-01-30 06:08] LABS: BASO # 0.1 10*3/uL (0.0-0.1); BASO % 0.7 % (0.0-1.0); LYMPH # 1.6 10*3/uL (1.3-4.4); LYMPH % 13.5 % (27.0-41.0); MEAN CELL VOLUME 99.7 fl (80.0-94.0); MEAN CORPUSCULAR HGB 31.1 pg (27.0-31.0); MEAN CORPUSCULAR HGB CONC 31.2 g/dl (33.0-37.0); MEAN PLATELET VOLUME 10.1 fl (9.6-12.3); MONO # 0.6 10*3/uL (0.1-1.0); MONO % 5.2 % (3.0-9.0); NEUT # 9.3 10*3/uL (2.3-7.9); NEUT % 80.2 % (47.0-73.0); PLATELET COUNT AUTOMATED 216 10*3/uL (130-400); RED BLOOD COUNT 3.31 10*6/uL (4.50-5.90); WHITE BLOOD COUNT 11.6 10*3/uL (4.8-10.8)
[2021-01-30 06:24] LABS: CREATININE 2.27 mg/dL (0.70-1.30); POTASSIUM 4.7 mmol/L (3.5-5.1)
[2021-01-30 08:00] VITALS: BP 102/64
[2021-01-30 12:00] VITALS: BP 108/66
[2021-01-30 16:00] VITALS: BP 110/60
[2021-01-30 20:00] VITALS: BP 121/105; BP 122/98
[2021-01-31] VITALS: BP 96/44
[2021-01-31 06:15] LABS: BASO # 0.1 10*3/uL (0.0-0.1); BASO % 0.6 % (0.0-1.0); HEMATOCRIT 32.9 % (42.0-52.0); LYMPH # 1.4 10*3/uL (1.3-4.4); LYMPH % 9.2 % (27.0-41.0); MEAN CELL VOLUME 99.4 fl (80.0-94.0); MEAN CORPUSCULAR HGB 30.8 pg (27.0-31.0); MEAN PLATELET VOLUME 10.2 fl (9.6-12.3); MONO # 0.7 10*3/uL (0.1-1.0); MONO % 4.8 % (3.0-9.0); NEUT # 12.9 10*3/uL (2.3-7.9); NEUT % 84.9 % (47.0-73.0); PLATELET COUNT AUTOMATED 235 10*3/uL (130-400); RED BLOOD COUNT 3.31 10*6/uL (4.50-5.90); RED CELL DISTRI WIDTH 15.1 % (0-14.5); WHITE BLOOD COUNT 15.2 10*3/uL (4.8-10.8)
[2021-01-31 06:23] LABS: CREATININE 1.93 mg/dL (0.70-1.30)
[2021-01-31 08:00] VITALS: BP 119/82
[2021-01-31 12:00] VITALS: BP 137/71
[2021-01-31 16:00] VITALS: BP 128/64
[2021-01-31 22:26] VITALS: BP 118/60
[2021-02-01 06:25] LABS: BASO # 0.1 10*3/uL (0.0-0.1); BASO % 0.8 % (0.0-1.0); HEMATOCRIT 31.3 % (42.0-52.0); LYMPH # 1.8 10*3/uL (1.3-4.4); LYMPH % 14.2 % (27.0-41.0); MEAN CELL VOLUME 99.1 fl (80.0-94.0); MEAN CORPUSCULAR HGB 31.3 pg (27.0-31.0); MEAN CORPUSCULAR HGB CONC 31.6 g/dl (33.0-37.0); MEAN PLATELET VOLUME 10.1 fl (9.6-12.3); MONO # 0.8 10*3/uL (0.1-1.0); MONO % 6.6 % (3.0-9.0); NEUT # 9.9 10*3/uL (2.3-7.9); PLATELET COUNT AUTOMATED 215 10*3/uL (130-400); RED BLOOD COUNT 3.16 10*6/uL (4.50-5.90); RED CELL DISTRI WIDTH 15.2 % (0-14.5); WHITE BLOOD COUNT 12.6 10*3/uL (4.8-10.8)
[2021-02-01 06:47] LABS: CREATININE 1.82 mg/dL (0.70-1.30); POTASSIUM 5.2 mmol/L (3.5-5.1)
[2021-02-01 08:00] VITALS: BP 110/59
[2021-02-01 12:00] VITALS: BP 118/66
[2021-02-01 16:00] VITALS: BP 104/57
[2021-02-01 20:00] VITALS: BP 118/59
[2021-02-02] VITALS: BP 117/77
[2021-02-02 06:28] LABS: BASO # 0.1 10*3/uL (0.0-0.1); BASO % 0.8 % (0.0-1.0); HEMATOCRIT 34.4 % (42.0-52.0); LYMPH # 1.3 10*3/uL (1.3-4.4); LYMPH % 9.8 % (27.0-41.0); MEAN CELL VOLUME 98.6 fl (80.0-94.0); MEAN CORPUSCULAR HGB 30.7 pg (27.0-31.0); MEAN CORPUSCULAR HGB CONC 31.1 g/dl (33.0-37.0); MEAN PLATELET VOLUME 10.5 fl (9.6-12.3); MONO # 0.7 10*3/uL (0.1-1.0); MONO % 5.1 % (3.0-9.0); NEUT # 11.1 10*3/uL (2.3-7.9); NEUT % 83.8 % (47.0-73.0); PLATELET COUNT AUTOMATED 225 10*3/uL (130-400); RED BLOOD COUNT 3.49 10*6/uL (4.50-5.90); RED CELL DISTRI WIDTH 15.1 % (0-14.5); WHITE BLOOD COUNT 13.3 10*3/uL (4.8-10.8)
[2021-02-02 06:30] LABS: ALBUMIN 3.3 gm/dl (3.1-4.5); POTASSIUM 5.5 mmol/L (3.5-5.1)
[2021-02-02 06:33] LABS: CREATININE 1.82 mg/dL (0.70-1.30); TOTAL PROTEIN 8.4 gm/dL (6.4-8.2)
[2021-02-02 08:00] VITALS: BP 104/71
[2021-02-02 12:00] VITALS: BP 107/80
[2021-02-02 14:57] VITALS: BP 108/54
[2021-02-02 20:00] VITALS: BP 95/45
[2021-02-03] VITALS (7 sets, daily range): BP systolic 96–104; BP diastolic 50–62
[2021-02-03 07:26] LABS: BASO # 0.1 10*3/uL (0.0-0.1); BASO % 0.8 % (0.0-1.0); HEMATOCRIT 33.5 % (42.0-52.0); LYMPH # 1.6 10*3/uL (1.3-4.4); LYMPH % 19.1 % (27.0-41.0); MEAN CELL VOLUME 99.7 fl (80.0-94.0); MEAN CORPUSCULAR HGB 30.7 pg (27.0-31.0); MEAN CORPUSCULAR HGB CONC 30.7 g/dl (33.0-37.0); MEAN PLATELET VOLUME 9.5 fl (9.6-12.3); MONO # 0.5 10*3/uL (0.1-1.0); MONO % 6.4 % (3.0-9.0); NEUT # 6.2 10*3/uL (2.3-7.9); NEUT % 73.2 % (47.0-73.0); PLATELET COUNT AUTOMATED 188 10*3/uL (130-400); RED BLOOD COUNT 3.36 10*6/uL (4.50-5.90); RED CELL DISTRI WIDTH 15.1 % (0-14.5); WHITE BLOOD COUNT 8.5 10*3/uL (4.8-10.8)
[2021-02-03 07:46] LABS: CREATININE 1.78 mg/dL (0.70-1.30); POTASSIUM 5.6 mmol/L (3.5-5.1)
[2021-02-04 06:00] LABS: ALBUMIN 2.9 gm/dl (3.1-4.5); CREATININE 1.65 mg/dL (0.70-1.30); POTASSIUM 5.5 mmol/L (3.5-5.1)
[2021-02-04 06:17] LABS: BASO # 0.1 10*3/uL (0.0-0.1); BASO % 0.8 % (0.0-1.0); EOS # 0.1 10*3/uL (0.0-0.4); EOS % 1.5 % (1.0-4.0); HEMATOCRIT 30.2 % (42.0-52.0); LYMPH # 2.4 10*3/uL (1.3-4.4); MEAN CELL VOLUME 98.4 fl (80.0-94.0); MEAN CORPUSCULAR HGB 30.3 pg (27.0-31.0); MEAN CORPUSCULAR HGB CONC 30.8 g/dl (33.0-37.0); MEAN PLATELET VOLUME 10.5 fl (9.6-12.3); MONO # 0.9 10*3/uL (0.1-1.0); NEUT % 63.3 % (47.0-73.0); PLATELET COUNT AUTOMATED 200 10*3/uL (130-400); RED BLOOD COUNT 3.07 10*6/uL (4.50-5.90); RED CELL DISTRI WIDTH 15.3 % (0-14.5); WHITE BLOOD COUNT 9.5 10*3/uL (4.8-10.8)
[2021-02-04 08:00] VITALS: BP 102/58
[2021-02-04 12:00] VITALS: BP 100/50
[2021-02-04 16:00] VITALS: BP 104/57
[2021-02-04 20:00] VITALS: BP 94/52
[2021-02-05] VITALS: BP 103/59
[2021-02-05 06:23] LABS: BASO # 0.1 10*3/uL (0.0-0.1); BASO % 0.7 % (0.0-1.0); HEMATOCRIT 31.5 % (42.0-52.0); LYMPH # 2.1 10*3/uL (1.3-4.4); LYMPH % 21.4 % (27.0-41.0); MEAN CELL VOLUME 99.1 fl (80.0-94.0); MEAN CORPUSCULAR HGB 31.1 pg (27.0-31.0); MEAN CORPUSCULAR HGB CONC 31.4 g/dl (33.0-37.0); MONO # 0.6 10*3/uL (0.1-1.0); MONO % 6.1 % (3.0-9.0); NEUT % 71.4 % (47.0-73.0); PLATELET COUNT AUTOMATED 193 10*3/uL (130-400); RED BLOOD COUNT 3.18 10*6/uL (4.50-5.90); RED CELL DISTRI WIDTH 15.2 % (0-14.5); WHITE BLOOD COUNT 9.8 10*3/uL (4.8-10.8)
[2021-02-05 06:39] LABS: CREATININE 1.69 mg/dL (0.70-1.30); POTASSIUM 5.3 mmol/L (3.5-5.1)
[2021-02-05 08:00] VITALS: BP 106/60
[2021-02-05 12:00] VITALS: BP 137/93
[2021-02-05 16:00] VITALS: BP 107/68
== END 2021-02-05 16:50 | DRG 871 ==
LOC: ED 18:45 → 5E 22:53 → EDHOLD 22:53 → 5E 01-29 14:33
PROVIDERS: Hospitalist; Internal Medicine; Social Worker Clinical; Student in an Organized Health Care Education/Training Program; ADMIT Internal Medicine; ATTEND Internal Medicine
PROC: 05HY33Z Insertion of Infusion Device into Upper Vein, Percutaneous Approach (ICD-10-PCS; principal; 2021-02-03)
DX: A41.9 Sepsis, unspecified organism (principal); N17.0 Acute kidney failure with tubular necrosis; G93.41 Metabolic encephalopathy; E87.2 Acidosis; N30.01 Acute cystitis with hematuria; E87.1 Hypo-osmolality and hyponatremia; Z66 Do not resuscitate; R65.20 Severe sepsis without septic shock; Z51.5 Encounter for palliative care; E83.41 Hypermagnesemia; C61 Malignant neoplasm of prostate; I25.10 Atherosclerotic heart disease of native coronary artery without angina pectoris; I12.9 Hypertensive chronic kidney disease with stage 1 through stage 4 chronic kidney disease, or unspecified chronic kidney disease; D49.4 Neoplasm of unspecified behavior of bladder; E87.8 Other disorders of electrolyte and fluid balance, not elsewhere classified; E78.5 Hyperlipidemia, unspecified; E11.22 Type 2 diabetes mellitus with diabetic chronic kidney disease; T83.511S Infection and inflammatory reaction due to indwelling urethral catheter, sequela; Z68.23 Body mass index [BMI] 23.0-23.9, adult; N18.30 Chronic kidney disease, stage 3 unspecified; K59.00 Constipation, unspecified; M1A.9XX0 Chronic gout, unspecified, without tophus (tophi); E11.42 Type 2 diabetes mellitus with diabetic polyneuropathy; N40.0 Benign prostatic hyperplasia without lower urinary tract symptoms; J44.9 Chronic obstructive pulmonary disease, unspecified; M81.0 Age-related osteoporosis without current pathological fracture; I48.91 Unspecified atrial fibrillation; Z95.5 Presence of coronary angioplasty implant and graft; Z90.49 Acquired absence of other specified parts of digestive tract; Z79.4 Long term (current) use of insulin; Z88.0 Allergy status to penicillin; Z79.01 Long term (current) use of anticoagulants; Z79.899 Other long term (current) drug therapy; Z82.49 Family history of ischemic heart disease and other diseases of the circulatory system; Z79.1 Long term (current) use of non-steroidal anti-inflammatories (NSAID); Z79.51 Long term (current) use of inhaled steroids